=== PATIENT | female | born 1995 | race Caucasian/White ===

== ENCOUNTER 2016-12-27 11:30 | Emergency (ER) | payer OTHER ==
[~2016-12-27 11:30] MED LIST: IBUP80TA PO; PERCOCET PO; VITAPRTA PO
[2016-12-27 12:53] LABS: BASO % 0.4 % (0.0-1.0); EOS # 0.1 K/mm3 (0.0-0.50); EOS % 1.1 % (0.0-3.0); LARGE UNSTAINED CELL # 0.1 K/mm3 (0.0-0.4); LARGE UNSTAINED CELL % 1.4 % (0.0-4.0); LYMPH # 2.4 K/mm3 (1.5-6.5); LYMPH % 29.3 % (24.0-44.0); MEAN CORPUSCULAR HEMOGLOBIN 31.3 pg (27.0-33.0); MEAN CORPUSCULAR HGB CONC 33.1 g/dl (32.0-36.5); MEAN CORPUSCULAR VOLUME 94.6 fl (80.0-96.0); MONO # 0.5 K/mm3 (0.0-0.8); MONO % 5.9 % (0.0-5.0); NEUTROPHILS # 4.9 K/mm3 (1.8-7.7); NEUTROPHILS % 61.9 % (36.0-66.0); PLATELET COUNT, AUTOMATED 210 k/mm3 (150-450); RED CELL DISTRIBUTION WIDTH 12.2 % (11.5-14.5); WHITE BLOOD COUNT 7.9 K/mm3 (4.0-10.0)
[2016-12-27 13:10] LABS: ANION GAP 5 MEQ/L (8-16); BLOOD UREA NITROGEN 7 MG/DL (7-18); CALCIUM LEVEL 8.8 MG/DL (8.5-10.1); CARBON DIOXIDE LEVEL 29 MEQ/L (21-32); CHLORIDE LEVEL 106 MEQ/L (98-107); CREATININE FOR GFR 0.58 MG/DL (0.55-1.02); GLOMERULAR FILTRATION RATE > 60.0 (>60); GLUCOSE, FASTING 85 MG/DL (70-105); SODIUM LEVEL 140 MEQ/L (136-145)
[2016-12-27 13:36] LABS: CONTROL LINE UCG INT CTR LINE PRESENT
--- NOTE | 2016-12-27 14:26 | EDDOCDS ---
Physician Documentation [facility] Name: Aki Bruno Age: 21 yrs Sex: Female : 1995 Arrival Date: 12/27/2016 Time: 11:30 Bed TR8 Private MD: [facility] - Pediatrics Disposition: 12/27/16 13:52 Discharged to Home/Self Care. Impression: Strain of muscle and tendon of back wall of thorax, Upper abdominal pain, unspecified, Dyspareunia. - Condition is Stable. - Discharge Instructions: Abdominal Pain, Adult, Muscle Strain, Dyspareunia. - Prescriptions for Ibuprofen 600 mg Oral Tablet - take 1 tablet by ORAL route every 6 hours As needed take with food; 30 tablet. ZOFRAN ODT 4 mg Oral - dissolve 1 tablet by ORAL route every 8 hours As needed do not chew, do not swallow whole; 10 tablet. - Medication Reconciliation, Local Pharmacy Hours form. - Follow up: [facility] - Pediatrics; When: Call to arrange an appointment; Reason: Recheck today's complaints, Continuance of care. Follow up: Marlo Huang MD; When: Call to arrange an appointment; Reason: Continuance of care. Follow up: Emergency Department; When: As needed; Reason: Fever > 102F, Worsening of conditions. - Problem is new. - Symptoms have improved. Historical: - Allergies: no known allergies; - Home Meds: 1. Tylenol 1000mg Oral (Last dose: 12/27/2016 09:00) - PMHx: Anxiety; Depression; Borderline Personality Disorder; - PSHx: ; Exploratory lap; - Social history: Smoking status: Patient uses tobacco products, current every day smoker. No barriers to communication noted, The patient speaks fluent Greek, Speaks appropriately for age. - Family history: Not pertinent. - : The pt / caregiver states he / she is not on anticoagulants. Home medication list is obtained from the patient. - Exposure Risk Screening:: None identified. 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 Vital Signs: 11:31 BP 105 / 60; Pulse 64; Resp 18; Temp 98.9(O); Pulse Ox 100% on R/A; Weight 54.88 kg / ct3 120.99 lbs (M); Height 5 ft. 6 in. (167.64 cm) (R); Pain 7/10; 14:18 BP 102 / 62; Pulse 63; Resp 16; Temp 99.3; Pulse Ox 99% ; Pain 5/10; cjh 11:31 Body Mass Index 19.53 (54.88 kg, 167.64 cm) ct3 MDM: 11:49 UA Ordered. EDMS 12:23 Set up pelvic ordered. ar2 12:23 Undress patient appropriately for examination ordered. ar2 12:23 CBC with Diff Ordered. EDMS 12:23 MED Profile Ordered. EDMS 12:23 Wet Prep Ordered. EDMS 12:23 GC & Chlamydia Amplification Ordered. EDMS 12:23 Urine Culture Ordered. EDMS 12:26 UCG- In Lab Ordered. EDMS 12:37 -US Pelvic Non-Ob Complete Ordered. EDMS 12:37 DUPLEX SCAN LIMITED (DOPPLER)+US Ordered. EDMS 12:52 Transvaginal NON- US Ordered. EDMS 12:53 Financial registration complete. lg 12:59 [facility] Payment Agreement was scanned into [employer] and attached to record. lg 13:50 UA Reviewed. ar2 13:50 CBC with Diff Reviewed. ar2 13:50 MED Profile Reviewed. ar2 13:50 Wet Prep Reviewed. ar2 13:50 UCG- In Lab Reviewed. ar2 Signatures: Dispatcher [employer] EDMarian Estrada, RN RN srm Pau Zamora, Reg Reg lg Brian Hamlin PA-C PA-C ar2 Tosha Griffin RN RN [facility] The chart was reviewed and I authenticate all verbal orders and agree with the evaluation and treatment provided.Corrections: (The following items were deleted from the chart) 11:39 11:39 Home Meds: none; srm srm 12:24 12:23 UCG by Nursing ordered. ar2 ar3 Attachments: 12:59 [facility] Payment Agreement lg MTDD
--- NOTE | 2016-12-27 14:27 | EDDOCDS ---
Nurse's Notes [facility] Name: Aki Bruno Age: 21 yrs Sex: Female : 1995 Arrival Date: 12/27/2016 Time: 11:30 Bed TR8 Private MD: [facility] - Pediatrics Diagnosis: Strain of muscle and tendon of back wall of thorax;Upper abdominal pain, unspecified;Dyspareunia Presentation: 12/27 11:37 Presenting complaint: Patient states: left flank pain and stomach feels like she is srm being kicked by a horse. symptoms started a couple of days. while having intercourse this week had mid abd pain. no urinary symptoms- some frequency. Acute neurological deficits are not present. Mechanism of Injury: No Mechanism of Injury. Adult Sepsis Screening: The patient does not have new or worsening altered mentation. Patient's respiratory rate is less than 22. Systolic blood pressure is greater than 100. Patient has a qSOFA score of 0- Negative Sepsis Screen. Suicide/Homicide risk assessment- the patient denies having any suicidal and/or homicidal ideations and does not present with any other emotional, behavioral or mental health complaints. Status: Patient is not a x ray service technician or dependent. Transition of care: patient was not received from another setting of care. 11:37 Acuity: KAY Level 3 srm 11:37 Method Of Arrival: Walkin/Carried/Asstd srm Triage Assessment: 11:39 General: Appears in no apparent distress, Behavior is appropriate for age, cooperative. srm Pain: Pain currently is 4 out of 10 on a pain scale. At worst was 8 out of 10 on a pain scale. HIV screening NA for this visit Offered previously. Musculoskeletal: Reports left flank. 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 Tylenol 1000mg Oral (Last dose: 12/27/2016 09:00) - PMHx: Anxiety; Depression; Borderline Personality Disorder; - PSHx: ; Exploratory lap; - Social history: Smoking status: Patient uses tobacco products, current every day smoker. No barriers to communication noted, The patient speaks fluent [place]ine[place], Speaks appropriately for age. - Family history: Not pertinent. - : The pt / caregiver states he / she is not on anticoagulants. Home medication list is obtained from the patient. - Exposure Risk Screening:: None identified. Screenin:32 Infection Control. ct3 14:18 Screening information is obtained from the patient. Fall risk: No risks identified. [facility] Assistance ADL's: requires no assistance with activities of daily living. Abuse/DV Screen: The patient / caregiver reports he/she is: not in a situation that causes fear, pain or injury. Nutritional screening: No deficits noted. Advance Directives: There is no active DNR order. home support is adequate. Assessment: 14:18 General: Appears in no apparent distress, comfortable, Behavior is appropriate for age, [facility] cooperative. Pain: Location: back Pain currently is 5 out of 10 on a pain scale. Respiratory: Airway is patent Respiratory effort is even, unlabored, Respiratory pattern is symmetrical. Derm: Skin is pink, warm & dry. Vital Signs: 11:31 BP 105 / 60; Pulse 64; Resp 18; Temp 98.9(O); Pulse Ox 100% on R/A; Weight 54.88 kg ct3 (M); Height 5 ft. 6 in. (167.64 cm) (R); Pain 7/10; 14:18 BP 102 / 62; Pulse 63; Resp 16; Temp 99.3; Pulse Ox 99% ; Pain 5/10; cjh 11:31 Body Mass Index 19.53 (54.88 kg, 167.64 cm) ct3 Vitals: 11:31 Log In Time: December 27, 2016 at 11:28. ct3 ED Course: 11:31 Patient visited by Cecile Lynn PCA. ct3 11:31 [facility] is Private Physician. ct3 11:31 Patient moved to Waiting ct3 11:32 Patient moved to Pre RCE ct3 11:38 Triage Initiated srm 11:46 Patient moved to Triage 3 ar3 12:01 [facility] ar2 12:01 Angel Luis Magallanes MD is Attending Physician. ar2 12:01 Patient visited by Brian Hamlin PA-C. ar2 12:24 Urine Culture Sent. ar3 12:29 UCG- In Lab Sent. ar3 12:29 MED Profile Sent. ar3 12:29 CBC with Diff Sent. ar3 12:41 Patient moved to TR2 ar3 12:41 GC & Chlamydia Amplification Sent. ar3 12:41 Wet Prep Sent. ar3 12:43 Patient moved to Ultrasound am10 12:59 [facility] Payment Agreement was scanned into [employer] and attached to record. lg 13:00 Patient moved to TR2 am10 13:37 Lois Odell,RN is Primary Nurse. ar3 13:37 Patient moved to PR1 / 25 ar3 13:51 [facility] is Referral Physician. ar2 13:51 Marlo Huang MD is Referral Physician. ar2 14:09 Patient moved to TR8 [facility] 14:18 The patient / caregiver is instructed regarding the plan of care and ED course. [facility] 14:18 No IV's were initiated during this patient's visit. No procedures done that require [facility] assistance. Order Results: Lab Order: UA; SPEC'M 12/27/16 11:49 Test: APPEARANCE, URINE; Value: HAZY; Range: CLEAR; Status: F Test: COLOR, URINE; Value: YELLOW; Range: YELLOW; Status: F Test: PH,URINE; Value: 8.0; Range: 5.0-9.0; Units: UNITS; Status: F Test: SPECIFIC GRAVITY URINE AUTO; Value: 1.023; Range: 1.002-1.035; Status: F Test: PROTEIN, URINE AUTO; Value: NEGATIVE; Range: NEGATIVE; Units: mg/dL; Status: F Test: GLUCOSE, URINE (UA) AUTO; Value: NEGATIVE; Range: NEGATIVE; Units: mg/dL; Status: F Test: KETONE, URINE AUTO; Value: NEGATIVE; Range: NEGATIVE; Units: mg/dL; Status: F Test: UROBILINOGEN, URINE AUTO; Value: 0.2; Range: 0.0-2.0; Units: mg/dL; Status: F Test: BILIRUBIN, URINE AUTO; Value: NEGATIVE; Range: NEGATIVE; Status: F Test: NITRITE, URINE AUTO; Value: NEGATIVE; Range: NEGATIVE; Status: F Test: LEUKOCYTE ESTERASE, URINE AUTO; Value: NEGATIVE; Range: NEGATIVE; Status: F Test: BLOOD, URINE BLOOD; Value: NEGATIVE; Range: NEGATIVE; Status: F Test: WBC, URINE AUTO; Value: 1; Range: 0-3; Units: /HPF; Status: F Test: RBC, URINE AUTO; Value: 3; Range: 0-3; Units: /HPF; Status: F Test: BACTERIA, URINE AUTO; Value: 1+; Range: NEGATIVE; Abnormal: Above high normal; Status: F Test: SQUAMOUS EPITHELIAL CELL UR AU; Value: 2; Range: 0-6; Units: /HPF; Status: F Test: MUCUS, URINE; Value: SMALL; Range: NEGATIVE; Status: F Test: HYALINE CAST, URINE AUTO; Value: 0; Range: 0-1; Units: /LPF; Status: F Lab Order: CBC with Diff; SPEC'M 12/27/16 12:28 Test: WHITE BLOOD COUNT; Value: 7.9; Range: 4.0-10.0; Units: K/mm3; Status: F Test: RED BLOOD COUNT; Value: 4.77; Range: 4.00-5.40; Units: M/mm3; Status: F Test: HEMOGLOBIN; Value: 14.9; Range: 12.0-16.0; Units: g/dl; Status: F Test: HEMATOCRIT; Value: 45.1; Range: 36.0-47.0; Units: %; Status: F Test: MEAN CORPUSCULAR VOLUME; Value: 94.6; Range: 80.0-96.0; Units: fl; Status: F Test: MEAN CORPUSCULAR HEMOGLOBIN; Value: 31.3; Range: 27.0-33.0; Units: pg; Status: F Test: MEAN CORPUSCULAR HGB CONC; Value: 33.1; Range: 32.0-36.5; Units: g/dl; Status: F Test: RED CELL DISTRIBUTION WIDTH; Value: 12.2; Range: 11.5-14.5; Units: %; Status: F Test: PLATELET COUNT, AUTOMATED; Value: 210; Range: 150-450; Units: k/mm3; Status: F Test: NEUTROPHILS %; Value: 61.9; Range: 36.0-66.0; Units: %; Status: F Test: LYMPH %; Value: 29.3; Range: 24.0-44.0; Units: %; Status: F Test: MONO %; Value: 5.9; Range: 0.0-5.0; Abnormal: Above high normal; Units: %; Status: F Test: EOS %; Value: 1.1; Range: 0.0-3.0; Units: %; Status: F Test: BASO %; Value: 0.4; Range: 0.0-1.0; Units: %; Status: F Test: LARGE UNSTAINED CELL %; Value: 1.4; Range: 0.0-4.0; Units: %; Status: F Test: NEUTROPHILS #; Value: 4.9; Range: 1.8-7.7; Units: K/mm3; Status: F Test: LYMPH #; Value: 2.4; Range: 1.5-6.5; Units: K/mm3; Status: F Test: MONO #; Value: 0.5; Range: 0.0-0.8; Units: K/mm3; Status: F Test: EOS #; Value: 0.1; Range: 0.0-0.50; Units: K/mm3; Status: F Test: BASO #; Value: 0.0; Range: 0.0-0.2; Units: K/mm3; Status: F Test: LARGE UNSTAINED CELL #; Value: 0.1; Range: 0.0-0.4; Units: K/mm3; Status: F Lab Order: MED Profile; [facility] 12/27/16 12:28 Test: GLUCOSE, FASTING; Value: 85; Range: 70-105; Units: MG/DL; Status: F Test: BLOOD UREA NITROGEN; Value: 7; Range: 7-18; Units: MG/DL; Status: F Test: CREATININE FOR GFR; Value: 0.58; Range: 0.55-1.02; Units: MG/DL; Status: F Test: GLOMERULAR FILTRATION RATE; Value: > 60.0; Range: >60; Status: F Test: SODIUM LEVEL; Value: 140; Range: 136-145; Units: MEQ/L; Status: F Test: POTASSIUM SERUM; Value: 4.0; Range: 3.5-5.1; Units: MEQ/L; Status: F Test: CHLORIDE LEVEL; Value: 106; Range: 98-107; Units: MEQ/L; Status: F Test: CARBON DIOXIDE LEVEL; Value: 29; Range: 21-32; Units: MEQ/L; Status: F Test: ANION GAP; Value: 5; Range: 8-16; Abnormal: Below low normal; Units: MEQ/L; Status: F Test: CALCIUM LEVEL; Value: 8.8; Range: 8.5-10.1; Units: MG/DL; Status: F Test Note: ; Units are mL/min/1.73 m2 Chronic Kidney Disease Staging per NKF: Stage I & II GFR >=60 Normal to Mildly Decreased Stage III GFR 30-59 Moderately Decreased Stage IV GFR 15-29 Severely Decreased Stage V GFR <15 Very Little GFR Left ESRD GFR <15 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 ar2 14:18 Discharge Assessment: Patient awake, alert and oriented x 3. No cognitive and/or [facility] functional deficits noted. Patient verbalized understanding of disposition instructions. patient administered narcotics - no. The following High Risk Discharge criteria are identified: None. Discharged to home ambulatory. Condition: good Condition: stable Condition: improved. Discharge instructions given to patient. Ultrasound Study completed. Property :Personal belongings accompany Pt. 14:26 Patient left the ED. [facility] Signatures: Marian Schroeder RN RN srm Pau Zamora, Reg Reg Erin Castaneda am10 Brian Hamlin PA-C PA-C ar2 Sara Shaver, LAND COMMISSIONER LAND COMMISSIONER ar3 Cecile Lynn, LAND COMMISSIONER LAND COMMISSIONER ct3 Tosha Griffin RN RN [facility] Corrections: (The following items were deleted from the chart) 11:39 11:39 Home Meds: none; srm srm MTDD
--- NOTE | 2016-12-27 16:00 | REP ---
PELVIC ULTRASOUND: Real-time sonographic evaluation of the pelvis was performed utilizing transabdominal and endovaginal technique. The bladder measures 2.1 x 1.6 x 5.2 cm. The uterus measures 6.6 x 3.1 x 3.8 cm. Endometrial thickness is 3 mm. There is no endometrial fluid collection. Right ovary measures 3.1 x 2.1 x 2.4 cm and left ovary 2.7 x 1.8 x 2.3 cm. There is an involuting follicle in the right ovary 1.1 cm in diameter. There is no other events of adnexal mass or free fluid. Blood flow is seen in each ovary with duplex Doppler evaluation, RI of the right ovary is 0.47 and left ovary 0.53. IMPRESSION: There is an involuting follicle right ovary 1.1 cm in diameter. No ovarian torsion, otherwise negative ultrasound. Signed by Manuelito Enamorado MD 12/28/2016 12:09 P
--- NOTE | 2016-12-29 15:28 | EDDOCDS ---
Physician Documentation [facility] Name: Aki Bruno Age: 21 yrs Sex: Female : 1995 Arrival Date: 12/27/2016 Time: 11:30 Bed TR8 Private MD: [facility] - Pediatrics Disposition: 12/27/16 13:52 Discharged to Home/Self Care. Impression: Strain of muscle and tendon of back wall of thorax, Upper abdominal pain, unspecified, Dyspareunia. - Condition is Stable. - Discharge Instructions: Abdominal Pain, Adult, Muscle Strain, Dyspareunia. - Prescriptions for Ibuprofen 600 mg Oral Tablet - take 1 tablet by ORAL route every 6 hours As needed take with food; 30 tablet. ZOFRAN ODT 4 mg Oral - dissolve 1 tablet by ORAL route every 8 hours As needed do not chew, do not swallow whole; 10 tablet. - Medication Reconciliation, Local Pharmacy Hours form. - Follow up: [facility] - Pediatrics; When: Call to arrange an appointment; Reason: Recheck today's complaints, Continuance of care. Follow up: Marlo Huang MD; When: Call to arrange an appointment; Reason: Continuance of care. Follow up: Emergency Department; When: As needed; Reason: Fever > 102F, Worsening of conditions. - Problem is new. - Symptoms have improved. Historical: - Allergies: no known allergies; - Home Meds: 1. Tylenol 1000mg Oral (Last dose: 12/27/2016 09:00) - PMHx: Anxiety; Depression; Borderline Personality Disorder; - PSHx: ; Exploratory lap; - Social history: Smoking status: Patient uses tobacco products, current every day smoker. No barriers to communication noted, The patient speaks fluent Armenian, Speaks appropriately for age. - Family history: Not pertinent. - : The pt / caregiver states he / she is not on anticoagulants. Home medication list is obtained from the patient. - Exposure Risk Screening:: None identified. 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 6 in. (167.64 cm) (R); Pain 7/10; 14:18 BP 102 / 62; Pulse 63; Resp 16; Temp 99.3; Pulse Ox 99% ; Pain 5/10; cjh 11:31 Body Mass Index 19.53 (54.88 kg, 167.64 cm) ct3 MDM: 11:49 UA Ordered. EDMS 12:23 Set up pelvic ordered. ar2 12:23 Undress patient appropriately for examination ordered. ar2 12:23 CBC with Diff Ordered. EDMS 12:23 MED Profile Ordered. EDMS 12:23 Wet Prep Ordered. EDMS 12:23 GC & Chlamydia Amplification Ordered. EDMS 12:23 Urine Culture Ordered. EDMS 12:26 UCG- In Lab Ordered. EDMS 12:37 -US Pelvic Non-Ob Complete Ordered. EDMS 12:37 DUPLEX SCAN LIMITED (DOPPLER)+US Ordered. EDMS 12:52 Transvaginal NON- US Ordered. EDMS 12:53 Financial registration complete. lg 12:59 [facility] Payment Agreement was scanned into [employer] and attached to record. lg 13:50 UA Reviewed. ar2 13:50 CBC with Diff Reviewed. ar2 13:50 MED Profile Reviewed. ar2 13:50 Wet Prep Reviewed. ar2 13:50 UCG- In Lab Reviewed. ar2 12/28 10:15 T-Sheet-- Draft Copy was scanned into [employer] and attached to record. gb 10:16 Radiology Report was scanned into [employer] and attached to record. gb Signatures: Dispatcher [employer] EDCO Marian Schroeder, RN RN [facility] Rebecca Malone, Reg Reg gb Pau Zamora, Reg Reg lg Brian Hamlin, PA-C PA-C ar2 Tosha Griffin RN RN [facility] The chart was reviewed and I authenticate all verbal orders and agree with the evaluation and treatment provided.Corrections: (The following items were deleted from the chart) 12/27 11:39 11:39 Home Meds: none; srm srm 12:24 12:23 UCG by Nursing ordered. ar2 ar3 Attachments: 12:59 [facility] Payment Agreement lg 12/28 10:15 T-Sheet-- Draft Copy gb Chart Complete MTDD
--- NOTE | 2016-12-29 15:28 | EDDOCDS ---
Nurse's Notes [facility] Name: Aki Bruno Age: 21 yrs Sex: Female : 1995 Arrival Date: 12/27/2016 Time: 11:30 Bed TR8 Private MD: [facility] Diagnosis: Strain of muscle and tendon of back wall of thorax;Upper abdominal pain, unspecified;Dyspareunia Presentation: 12/27 11:37 Presenting complaint: Patient states: left flank pain and stomach feels like she is srm being kicked by a horse. symptoms started a couple of days. while having intercourse this week had mid abd pain. no urinary symptoms- some frequency. Acute neurological deficits are not present. Mechanism of Injury: No Mechanism of Injury. Adult Sepsis Screening: The patient does not have new or worsening altered mentation. Patient's respiratory rate is less than 22. Systolic blood pressure is greater than 100. Patient has a qSOFA score of 0- Negative Sepsis Screen. Suicide/Homicide risk assessment- the patient denies having any suicidal and/or homicidal ideations and does not present with any other emotional, behavioral or mental health complaints. 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 Transition of care: patient was not received from another setting of care. 11:37 Acuity: KAY Level 3 srm 11:37 Method Of Arrival: Walkin/Carried/Asstd srm Triage Assessment: 11:39 General: Appears in no apparent distress, Behavior is appropriate for age, cooperative. srm Pain: Pain currently is 4 out of 10 on a pain scale. At worst was 8 out of 10 on a pain scale. HIV screening NA for this visit Offered previously. Musculoskeletal: Reports left flank. [employer]: 11:39 LMP 11/29/2016 srm Historical: - Allergies: no known allergies; - Home Meds: 1. Tylenol 1000mg Oral (Last dose: 12/27/2016 09:00) - PMHx: Anxiety; Depression; Borderline Personality Disorder; - PSHx: ; Exploratory lap; - Social history: Smoking status: Patient uses tobacco products, current every day smoker. No barriers to communication noted, The patient speaks fluent Guatemalan, Speaks appropriately for age. - Family history: Not pertinent. - : The pt / caregiver states he / she is not on anticoagulants. Home medication list is obtained from the patient. - Exposure Risk Screening:: None identified. Screenin:32 Infection Control. ct3 14:18 Screening information is obtained from the patient. Fall risk: No risks identified. [facility] Assistance ADL's: requires no assistance with activities of daily living. Abuse/DV Screen: The patient / caregiver reports he/she is: not in a situation that causes fear, pain or injury. Nutritional screening: No deficits noted. Advance Directives: There is no active DNR order. home support is adequate. Assessment: 14:18 General: Appears in no apparent distress, comfortable, Behavior is appropriate for age, [facility] cooperative. Pain: Location: back Pain currently is 5 out of 10 on a pain scale. Respiratory: Airway is patent Respiratory effort is even, unlabored, Respiratory pattern is symmetrical. Derm: Skin is pink, warm & dry. Vital Signs: 11:31 BP 105 / 60; Pulse 64; Resp 18; Temp 98.9(O); Pulse Ox 100% on R/A; Weight 54.88 kg ct3 (M); Height 5 ft. 6 in. (167.64 cm) (R); Pain 7/10; 14:18 BP 102 / 62; Pulse 63; Resp 16; Temp 99.3; Pulse Ox 99% ; Pain 5/10; cjh 11:31 Body Mass Index 19.53 (54.88 kg, 167.64 cm) ct3 Vitals: 11:31 Log In Time: December 27, 2016 at 11:28. ct3 ED Course: 11:31 Patient visited by Cecile Lynn PCA. ct3 11:31 [facility] is Private Physician. ct3 11:31 Patient moved to Waiting ct3 11:32 Patient moved to Pre RCE ct3 11:38 Triage Initiated srm 11:46 Patient moved to Triage 3 ar3 12:01 [facility]. ar2 12:01 Angel Luis Magallanes MD is Attending Physician. ar2 12:01 Patient visited by Brian Hamlin PA-C. ar2 12:24 Urine Culture Sent. ar3 12:29 UCG- In Lab Sent. ar3 12:29 MED Profile Sent. ar3 12:29 CBC with Diff Sent. ar3 12:41 Patient moved to TR2 ar3 12:41 GC & Chlamydia Amplification Sent. ar3 12:41 Wet Prep Sent. ar3 12:43 Patient moved to Ultrasound am10 12:59 [facility] Payment Agreement was scanned into [employer] and attached to record. lg 13:00 Patient moved to TR2 am10 13:37 Lois Odell,RN is Primary Nurse. ar3 13:37 Patient moved to PR1 / 25 ar3 13:51 [facility] is Referral Physician. ar2 13:51 Marlo Huang MD is Referral Physician. ar2 14:09 Patient moved to TR8 [facility] 14:18 The patient / caregiver is instructed regarding the plan of care and ED course. [facility] 14:18 No IV's were initiated during this patient's visit. No procedures done that require [facility] assistance. 16:06 -US Pelvic Non-Ob Complete Returned. EDMS 12/28 10:15 T-Sheet-- Draft Copy was scanned into [employer] and attached to record. 10:16 Radiology Report was scanned into [employer] and attached to record. gb Order Results: Lab Order: UA; SPEC'M 12/27/16 11:49 Test: APPEARANCE, URINE; Value: HAZY; Range: CLEAR; Status: F Test: COLOR, URINE; Value: YELLOW; Range: YELLOW; Status: F Test: PH,URINE; Value: 8.0; Range: 5.0-9.0; Units: UNITS; Status: F Test: SPECIFIC GRAVITY URINE AUTO; Value: 1.023; Range: 1.002-1.035; Status: F Test: PROTEIN, URINE AUTO; Value: NEGATIVE; Range: NEGATIVE; Units: mg/dL; Status: F Test: GLUCOSE, URINE (UA) AUTO; Value: NEGATIVE; Range: NEGATIVE; Units: mg/dL; Status: F Test: KETONE, URINE AUTO; Value: NEGATIVE; Range: NEGATIVE; Units: mg/dL; Status: F Test: UROBILINOGEN, URINE AUTO; Value: 0.2; Range: 0.0-2.0; Units: mg/dL; Status: F Test: BILIRUBIN, URINE AUTO; Value: NEGATIVE; Range: NEGATIVE; Status: F Test: NITRITE, URINE AUTO; Value: NEGATIVE; Range: NEGATIVE; Status: F Test: LEUKOCYTE ESTERASE, URINE AUTO; Value: NEGATIVE; Range: NEGATIVE; Status: F Test: BLOOD, URINE BLOOD; Value: NEGATIVE; Range: NEGATIVE; Status: F Test: WBC, URINE AUTO; Value: 1; Range: 0-3; Units: /HPF; Status: F Test: RBC, URINE AUTO; Value: 3; Range: 0-3; Units: /HPF; Status: F Test: BACTERIA, URINE AUTO; Value: 1+; Range: NEGATIVE; Abnormal: Above high normal; Status: F Test: SQUAMOUS EPITHELIAL CELL UR AU; Value: 2; Range: 0-6; Units: /HPF; Status: F Test: MUCUS, URINE; Value: SMALL; Range: NEGATIVE; Status: F Test: HYALINE CAST, URINE AUTO; Value: 0; Range: 0-1; Units: /LPF; Status: F Lab Order: CBC with Diff; SPEC'M 12/27/16 12:28 Test: WHITE BLOOD COUNT; Value: 7.9; Range: 4.0-10.0; Units: K/mm3; Status: F Test: RED BLOOD COUNT; Value: 4.77; Range: 4.00-5.40; Units: M/mm3; Status: F Test: HEMOGLOBIN; Value: 14.9; Range: 12.0-16.0; Units: g/dl; Status: F Test: HEMATOCRIT; Value: 45.1; Range: 36.0-47.0; Units: %; Status: F Test: MEAN CORPUSCULAR VOLUME; Value: 94.6; Range: 80.0-96.0; Units: fl; Status: F Test: MEAN CORPUSCULAR HEMOGLOBIN; Value: 31.3; Range: 27.0-33.0; Units: pg; Status: F Test: MEAN CORPUSCULAR HGB CONC; Value: 33.1; Range: 32.0-36.5; Units: g/dl; Status: F Test: RED CELL DISTRIBUTION WIDTH; Value: 12.2; Range: 11.5-14.5; Units: %; Status: F Test: PLATELET COUNT, AUTOMATED; Value: 210; Range: 150-450; Units: k/mm3; Status: F Test: NEUTROPHILS %; Value: 61.9; Range: 36.0-66.0; Units: %; Status: F Test: LYMPH %; Value: 29.3; Range: 24.0-44.0; Units: %; Status: F Test: MONO %; Value: 5.9; Range: 0.0-5.0; Abnormal: Above high normal; Units: %; Status: F Test: EOS %; Value: 1.1; Range: 0.0-3.0; Units: %; Status: F Test: BASO %; Value: 0.4; Range: 0.0-1.0; Units: %; Status: F Test: LARGE UNSTAINED CELL %; Value: 1.4; Range: 0.0-4.0; Units: %; Status: F Test: NEUTROPHILS #; Value: 4.9; Range: 1.8-7.7; Units: K/mm3; Status: F Test: LYMPH #; Value: 2.4; Range: 1.5-6.5; Units: K/mm3; Status: F Test: MONO #; Value: 0.5; Range: 0.0-0.8; Units: K/mm3; Status: F Test: EOS #; Value: 0.1; Range: 0.0-0.50; Units: K/mm3; Status: F Test: BASO #; Value: 0.0; Range: 0.0-0.2; Units: K/mm3; Status: F Test: LARGE UNSTAINED CELL #; Value: 0.1; Range: 0.0-0.4; Units: K/mm3; Status: F Lab Order: [facility]; [facility]' 12/27/16 12:28 Test: GLUCOSE, FASTING; Value: 85; Range: 70-105; Units: MG/DL; Status: F Test: BLOOD UREA NITROGEN; Value: 7; Range: 7-18; Units: MG/DL; Status: F Test: CREATININE FOR GFR; Value: 0.58; Range: 0.55-1.02; Units: MG/DL; Status: F Test: GLOMERULAR FILTRATION RATE; Value: > 60.0; Range: >60; Status: F Test: SODIUM LEVEL; Value: 140; Range: 136-145; Units: MEQ/L; Status: F Test: POTASSIUM SERUM; Value: 4.0; Range: 3.5-5.1; Units: MEQ/L; Status: F Test: CHLORIDE LEVEL; Value: 106; Range: 98-107; Units: MEQ/L; Status: F Test: CARBON DIOXIDE LEVEL; Value: 29; Range: 21-32; Units: MEQ/L; Status: F Test: ANION GAP; Value: 5; Range: 8-16; Abnormal: Below low normal; Units: MEQ/L; Status: F Test: CALCIUM LEVEL; Value: 8.8; Range: 8.5-10.1; Units: MG/DL; Status: F Test Note: ; Units are mL/min/1.73 m2 Chronic Kidney Disease Staging per NKF: Stage I & II GFR >=60 Normal to Mildly Decreased Stage III GFR 30-59 Moderately Decreased Stage IV GFR 15-29 Severely Decreased Stage V GFR <15 Very Little GFR Left ESRD GFR <15 on OPERATIONAL METEOROLOGIST Lab Order: Wet Prep; SPEC'M 12/27/16 12:28 Test: WET PREP; Value: WET PREP RESULT; Status: F Test: WET PREP; Value: MANY EPITHELIAL CELLS PRESENT; Status: F Test: WET PREP; Value: MODERATE WBC; Status: F Test: WET PREP; Value: FEW RBC; Status: F Test: WET PREP; Value: MANY LONG RODS PRESENT; Status: F Lab Order: GC & Chlamydia Amplification; SPEC'M 12/27/16 12:28 Test: CHLAMYDIA DNA AMPLIFICATION; Value: NEGATIVE; Range: NEGATIVE; Status: F Test: GC DNA AMPLIFICATION; Value: NEGATIVE; Range: NEGATIVE; Status: F Lab Order: Urine Culture; SPEC'M 12/27/16 11:48 Test: URINE CULTURE; Value: <EXTERNAL COMMENT eCWMed> FULL REPORT IN LAB NOTES (eCW and Medent).; Status: F Test: URINE CULTURE; Value: URINE CULTURE RESULT NO GROWTH CLINICAL SIGNIFICANCE 1 ORGANISM; Status: F Lab Order: UCG- In Lab; SPEC'M 12/27/16 11:49 Test: URINE PREG TEST; Value: NEGATIVE; Range: NEGATIVE; Status: F Radiology Order: -US Pelvic Non-Ob Complete Test: -US Pelvic Non-Ob Complete REASON FOR EXAMINATION: right adenexal pain; PELVIC ULTRASOUND:; ; Real-time sonographic evaluation of the pelvis was performed utilizing; transabdominal and endovaginal technique.; ; The bladder measures 2.1 x 1.6 x 5.2 cm. The uterus measures 6.6 x 3.1 x 3.8 cm.; Endometrial thickness is 3 mm. There is no endometrial fluid collection. Right; ovary measures 3.1 x 2.1 x 2.4 cm and left ovary 2.7 x 1.8 x 2.3 cm. There is an; involuting follicle in the right ovary 1.1 cm in diameter. There is no other; events of adnexal mass or free fluid. Blood flow is seen in each ovary with; duplex Doppler evaluation, RI of the right ovary is 0.47 and left ovary 0.53.; ; IMPRESSION:; ; There is an involuting follicle right ovary 1.1 cm in diameter. No ovarian; torsion, otherwise negative ultrasound.; ; ; Signed by; Manuelito Enamorado MD 12/28/2016 12:09 P; Outcome: 12/27 13:52 Discharge ordered by Provider. ar2 14:18 Discharge Assessment: Patient awake, alert and oriented x 3. No cognitive and/or [facility] functional deficits noted. Patient verbalized understanding of disposition instructions. patient administered narcotics - no. The following High Risk Discharge criteria are identified: None. Discharged to home ambulatory. Condition: good Condition: stable Condition: improved. Discharge instructions given to patient. Ultrasound Study completed. Property :Personal belongings accompany Pt. 14:26 Patient left the ED. [facility] Signatures: Dispatcher [employer] EDMS Marian Schroeder, RN RN srm Rebecca Malone, Reg Reg gb Pau Zamora, Reg Reg lg Erin Vivas am10 Brian Hamlin, MICHELLE PA-C ar2 Sara Shaver, LIFE TRAINER LIFE TRAINER ar3 Cecile Lynn, LIFE TRAINER LIFE TRAINER ct3 Tosha Griffin RN RN [facility] Corrections: (The following items were deleted from the chart) 11:39 11:39 Home Meds: none; srm srm Chart Complete MTDD
--- NOTE | 2016-12-29 15:28 | EDDOCDS ---
Physician Documentation [facility] Name: Aki Bruno Age: 21 yrs Sex: Female : 1995 Arrival Date: 12/27/2016 Time: 11:30 Bed TR8 Private MD: [facility] - [facility] Disposition: 12/27/16 13:52 Discharged to Home/Self Care. Impression: Strain of muscle and tendon of back wall of thorax, Upper abdominal pain, unspecified, Dyspareunia. - Condition is Stable. - Discharge Instructions: Abdominal Pain, Adult, Muscle Strain, Dyspareunia. - Prescriptions for Ibuprofen 600 mg Oral Tablet - take 1 tablet by ORAL route every 6 hours As needed take with food; 30 tablet. ZOFRAN ODT 4 mg Oral - dissolve 1 tablet by ORAL route every 8 hours As needed do not chew, do not swallow whole; 10 tablet. - Medication Reconciliation, Local Pharmacy Hours form. - Follow up: [facility]; When: Call to arrange an appointment; Reason: Recheck today's complaints, Continuance of care. Follow up: Marlo Huang MD; When: Call to arrange an appointment; Reason: Continuance of care. Follow up: Emergency Department; When: As needed; Reason: Fever > 102F, Worsening of conditions. - Problem is new. - Symptoms have improved. Historical: - Allergies: no known allergies; - Home Meds: 1. Tylenol 1000mg Oral (Last dose: 12/27/2016 09:00) - PMHx: Anxiety; Depression; Borderline Personality Disorder; - PSHx: ; Exploratory lap; - Social history: Smoking status: Patient uses tobacco products, current every day smoker. No barriers to communication noted, The patient speaks fluent Bengali, Speaks appropriately for age. - Family history: Not pertinent. - : The pt / caregiver states he / she is not on anticoagulants. Home medication list is obtained from the patient. - Exposure Risk Screening:: None identified. HAND TUFTER: 12/27 11:39 LMP 11/29/2016 [facility] Vital Signs: 11:31 BP 105 / 60; Pulse 64; Resp 18; Temp 98.9(O); Pulse Ox 100% on R/A; Weight 54.88 kg / ct3 120.99 lbs (M); Height 5 ft. 6 in. (167.64 cm) (R); Pain 7/10; 14:18 BP 102 / 62; Pulse 63; Resp 16; Temp 99.3; Pulse Ox 99% ; Pain 5/10; cjh 11:31 Body Mass Index 19.53 (54.88 kg, 167.64 cm) ct3 MDM: 11:49 UA Ordered. EDMS 12:23 Set up pelvic ordered. ar2 12:23 Undress patient appropriately for examination ordered. ar2 12:23 CBC with Diff Ordered. EDMS 12:23 MED Profile Ordered. EDMS 12:23 Wet Prep Ordered. EDMS 12:23 GC & Chlamydia Amplification Ordered. EDMS 12:23 Urine Culture Ordered. EDMS 12:26 UCG- In Lab Ordered. EDMS 12:37 -US Pelvic Non-Ob Complete Ordered. EDMS 12:37 DUPLEX SCAN LIMITED (DOPPLER)+US Ordered. EDMS 12:52 Transvaginal NON- US Ordered. EDMS 12:53 Financial registration complete. lg 12:59 [facility] Payment Agreement was scanned into [employer] and attached to record. lg 13:50 UA Reviewed. ar2 13:50 CBC with Diff Reviewed. ar2 13:50 MED Profile Reviewed. ar2 13:50 Wet Prep Reviewed. ar2 13:50 UCG- In Lab Reviewed. ar2 12/28 10:15 T-Sheet-- Draft Copy was scanned into [employer] and attached to record. gb 10:16 Radiology Report was scanned into [employer] and attached to record. gb Signatures: Dispatcher [employer] EDUT Marian Schroeder, RN RN [facility] Rebecca Malone, Reg Reg gb Pau Zamora, Reg Reg lg Brian Hamlin, PA-C PA-C ar2 Tosha Griffin RN RN [facility] The chart was reviewed and I authenticate all verbal orders and agree with the evaluation and treatment provided.Corrections: (The following items were deleted from the chart) 12/27 11:39 11:39 Home Meds: none; srm srm 12:24 12:23 UCG by Nursing ordered. ar2 ar3 Attachments: 12:59 [facility] Payment Agreement lg 12/28 10:15 T-Sheet-- Draft Copy gb Chart Complete MTDD
== END 2016-12-27 14:26 | disposition home or self-care (01) ==
LOC: M ED 11:30
DX: S29.012A Strain of muscle and tendon of back wall of thorax, initial encounter (principal); X58.XXXA Exposure to other specified factors, initial encounter; Y92.89 Other specified places as the place of occurrence of the external cause; Y93.89 Activity, other specified; Y99.8 Other external cause status; F32.9 Major depressive disorder, single episode, unspecified; F41.9 Anxiety disorder, unspecified; F60.3 Borderline personality disorder; F17.200 Nicotine dependence, unspecified, uncomplicated

== ENCOUNTER → 2017-02-21 | Outpatient (CLI) | payer OTHER ==
[~2017-02-21] MED LIST changes: +GASTROGRAFIN SOLUTION 30ML (Q9963) As Ordered ONE; +ISOVUE-370 76% 100ML VIAL (Q9967) As Ordered ONE
--- NOTE | 2017-02-21 16:10 | REP ---
CT study of the abdomen and pelvis without and with IV contrast: With oral contrast: History: Left upper quadrant abdominal pain. Comparison study: 09/26/2013. CT contrast dose: 100 mL of Isovue-[address] findings: Preliminary digital roof promenade tile setter radiograph is noncontributory. The lung bases are clear. There is no evidence of pleural effusion or upper abdominal ascites. The liver and the spleen are normal in size homogeneous in texture on pre- and postcontrast images. No adrenal lesion is seen on either side. Pancreas and gallbladder are unremarkable in appearance. No retroperitoneal mass or adenopathy is seen. Normal caliber aorta is seen. The kidneys enhance symmetrically are morphologically intact. Small and large intestinal bowel loops are unremarkable in the upper abdomen. Pelvic CT images show a normal appendix low in the right lower quadrant. No uterine or ovarian mass lesion is seen. Enhancement is noted in fairly numerous parametrial pelvic venous structures as before. Urinary bladder is unremarkable. No abdominal wall defect is seen. Bone window settings show no bony destructive lesion. Impression: Somewhat prominent parametrial veins in the pelvis bilaterally unchanged from the comparison study. Question pelvic congestion. Normal appendix seen. Gallbladder and pancreas are unremarkable. No acute disease. Signed by Sigifredo Garcia MD 02/21/2017 04:20 P
== END ==
LOC: M RAD 10:37
PROVIDERS: ATTEND Specialist
DX: R10.9 Unspecified abdominal pain (principal)

== ENCOUNTER → 2017-03-01 | Outpatient (REF) | payer OTHER ==
[~2017-03-01] MED LIST changes: -GASTROGRAFIN SOLUTION 30ML (Q9963) As Ordered ONE; -ISOVUE-370 76% 100ML VIAL (Q9967) As Ordered ONE
== END ==
LOC: M LAB REF 13:21
PROVIDERS: ATTEND Specialist
DX: Z12.11 Encounter for screening for malignant neoplasm of colon (principal)

== ENCOUNTER → 2017-04-07 | Outpatient (REF) | payer OTHER, MEDICAID | LOC: M LAB REF 16:26 | PROVIDERS: ATTEND Physician Assistant | DX: J02.9 Acute pharyngitis, unspecified (principal) ==

== ENCOUNTER 2017-07-02 11:02 | Emergency (ER) | payer MEDICAID, OTHER ==
[~2017-07-02] VITALS: Ht 170.2 cm; Wt 53.0 kg
[2017-07-02] MEDS ORDERED: MEDR1VL IM (11:10)
[2017-07-02 11:53] LABS: CONTROL LINE UCG INT CTR LINE PRESENT
[2017-07-02] MEDS ORDERED: NAPR500T PO (12:51)
[2017-07-02 13:00] VITALS: BP 97/65
== END 2017-07-02 13:04 | disposition home or self-care (01) ==
LOC: M ED 11:02
DX: S39.011A Strain of muscle, fascia and tendon of abdomen, initial encounter (principal); X50.0XXA Overexertion from strenuous movement or load, initial encounter; Y92.89 Other specified places as the place of occurrence of the external cause; Y93.89 Activity, other specified; Y99.0 Civilian activity done for income or pay; F41.9 Anxiety disorder, unspecified; F32.9 Major depressive disorder, single episode, unspecified

== ENCOUNTER → 2017-10-27 | Outpatient (CLI) | payer OTHER ==
[~2017-10-27] MED LIST changes: +MEDR1VL IM; +NAPR500T PO
[2017-10-27 20:18] LABS: BASO # 0.1 10^3/uL (0.0-0.2); BASO % 0.6 % (0.0-1.0); EOS # 0.1 10^3/uL (0.0-0.50); EOS % 1.1 % (0.0-3.0); IMMATURE GRANULOCYTE % 0.6 % (0-0); LYMPH # 3.4 10^3/uL (1.5-6.5); LYMPH % 31.9 % (24.0-44.0); MEAN CORPUSCULAR HEMOGLOBIN 30.9 pg (27.0-33.0); MEAN CORPUSCULAR HGB CONC 33.3 g/dl (32.0-36.5); MEAN CORPUSCULAR VOLUME 92.8 fl (80.0-96.0); MONO # 0.6 10^3/uL (0.0-0.8); MONO % 5.5 % (0.0-5.0); NEUTROPHILS # 6.4 10^3/uL (1.8-7.7); NEUTROPHILS % 60.3 % (36.0-66.0); PLATELET COUNT, AUTOMATED 257 10^3/uL (150-450); RED CELL DISTRIBUTION WIDTH 12.4 % (11.5-14.5); WHITE BLOOD COUNT 10.7 10^3/uL (4.0-10.0)
== END ==
LOC: M WUC 15:49
PROVIDERS: ATTEND Physician Assistant
DX: B00.9 Herpesviral infection, unspecified (principal)

== ENCOUNTER 2018-01-27 16:44 | Inpatient (IN) | payer MEDICAID, OTHER ==
[2018-01-27 17:48] LABS: HEMATOCRIT 44.6 % (36.0-47.0); HEMOGLOBIN 15.1 g/dl (12.0-16.0); MEAN CORPUSCULAR HEMOGLOBIN 31.3 pg (27.0-33.0); MEAN CORPUSCULAR HGB CONC 33.9 g/dl (32.0-36.5); MEAN CORPUSCULAR VOLUME 92.5 fl (80.0-96.0); PLATELET COUNT, AUTOMATED 255 10^3/uL (150-450); RED BLOOD COUNT 4.82 10^6/uL (4.00-5.40); RED CELL DISTRIBUTION WIDTH 11.9 % (11.5-14.5); WHITE BLOOD COUNT 9.1 10^3/uL (4.0-10.0)
[2018-01-27 18:13] LABS: AMPHETAMINES LEVEL URINE NEGATIVE (NEGATIVE); BARBITURATES URINE NEGATIVE (NEGATIVE); BENZODIAZEPINES URINE NEGATIVE (NEGATIVE); CANNABINOIDS URINE POSITIVE (NEGATIVE); COCAINE METABOLITE URINE NEGATIVE (NEGATIVE); METHADONE URINE NEGATIVE (NEGATIVE); OPIATES URINE NEGATIVE (NEGATIVE); PHENCYCLIDINE URINE NEGATIVE (NEGATIVE)
[2018-01-27 18:24] LABS: ALBUMIN 4.6 GM/DL (3.2-5.2); ALBUMIN/GLOBULIN RATIO 1.39 (1.00-1.93); ALKALINE PHOSPHATASE 97 U/L (45-117); ALT/SGPT 20 U/L (12-78); ANION GAP 8 MEQ/L (8-16); AST/SGOT 14 U/L (7-37); BILIRUBIN,DIRECT 0.1 MG/DL (0.0-0.2); BILIRUBIN,TOTAL 0.4 MG/DL (0.2-1.0); BLOOD UREA NITROGEN 11 MG/DL (7-18); CARBON DIOXIDE LEVEL 29 MEQ/L (21-32); CHLORIDE LEVEL 105 MEQ/L (98-107); CREATININE FOR GFR 0.67 MG/DL (0.55-1.30); ETHYL ALCOHOL (ETHANOL) < 0.003 % (0.000-0.010); GLOMERULAR FILTRATION RATE > 60.0 (>60); GLUCOSE, FASTING 62 MG/DL (70-100); POTASSIUM SERUM 3.7 MEQ/L (3.5-5.1); SALICYLATE LEVEL 3.7 MG/DL (5.0-30.0); SODIUM LEVEL 142 MEQ/L (136-145); THYROID STIMULATING HORMONE 0.301 uIU/ML (0.358-3.740); TOTAL PROTEIN 7.9 GM/DL (6.4-8.2)
[2018-01-27 18:25] LABS: ACETAMINOPHEN LEVEL < 2.0 UG/ML (10.0-30.0)
[2018-01-27] MEDS ORDERED: MAALOX 30 ML SUSP *UDC PO (19:45)
[2018-01-27] MEDS ORDERED: MOM 30ML SUSPENSION UDC PO (19:45)
[2018-01-27] MEDS: OXcarbazepine 150 MG TAB PO (23:45)
[2018-01-27] MEDS: QUEtiapine FUMARATE 50 MG TAB PO (23:45)
[2018-01-28] MEDS: QUEtiapine FUMARATE 50 MG TAB PO ×3 (08:58→22:14)
[2018-01-28] MEDS: OXcarbazepine 150 MG TAB PO ×2 (08:58→22:14)
[2018-01-28] MEDS: NICOTINE 21MG/24HR 1 EA TRANSDERMAL TD (08:58)
[2018-01-28] MEDS: GABAPENTIN 100 MG CAP PO ×2 (12:51→22:14)
[2018-01-28] MEDS: ACETAMINOPHEN TAB 650MG DOSE (2X325MG) PO (22:15)
[2018-01-29] MEDS: QUEtiapine FUMARATE 50 MG TAB PO (08:24)
[2018-01-29] MEDS: GABAPENTIN 100 MG CAP PO ×2 (08:24→20:28)
[2018-01-29] MEDS: OXcarbazepine 150 MG TAB PO ×2 (08:24→20:28)
[2018-01-29] MEDS: NICOTINE 21MG/24HR 1 EA TRANSDERMAL TD (08:24)
[2018-01-29 08:57] LABS: FREE T4 1.06 NG/DL (0.76-1.46)
[2018-01-29] MEDS: ACETAMINOPHEN TAB 650MG DOSE (2X325MG) PO ×2 (11:28→20:29)
[2018-01-29] MEDS: FLUoxetine 10 MG CAP PO (13:33)
[2018-01-29] MEDS: clonazePAM 0.5 MG TAB PO (20:28)
[2018-01-30] MEDS: GABAPENTIN 100 MG CAP PO ×2 (08:07→20:12)
[2018-01-30] MEDS: OXcarbazepine 150 MG TAB PO ×2 (08:07→20:12)
[2018-01-30] MEDS: ACETAMINOPHEN TAB 650MG DOSE (2X325MG) PO ×2 (08:07→20:12)
[2018-01-30] MEDS: clonazePAM 0.5 MG TAB PO (08:07)
[2018-01-30] MEDS: FLUoxetine 10 MG CAP PO (08:07)
[2018-01-30] MEDS: NICOTINE 21MG/24HR 1 EA TRANSDERMAL TD (08:08)
[2018-01-30] MEDS ORDERED: clonazePAM 0.5 MG TAB PO (11:45)
[2018-01-30] MEDS: traZODone 50 MG TAB PO (21:35)
[2018-01-31] MEDS: NICOTINE 21MG/24HR 1 EA TRANSDERMAL TD (08:10)
[2018-01-31] MEDS: OXcarbazepine 150 MG TAB PO (08:12)
[2018-01-31] MEDS: FLUoxetine 10 MG CAP PO (08:12)
[2018-01-31] MEDS: GABAPENTIN 100 MG CAP PO (08:12)
[2018-01-31] MEDS: ACETAMINOPHEN TAB 650MG DOSE (2X325MG) PO (08:12)
== END 2018-01-31 11:15 | disposition home or self-care (01) | DRG 881 ==
LOC: M ED 16:44 → M ED INP 19:42 → M PSY 22:00
DX: F32.9 Major depressive disorder, single episode, unspecified (principal); F60.3 Borderline personality disorder; F41.1 Generalized anxiety disorder; Z81.8 Family history of other mental and behavioral disorders; Z81.1 Family history of alcohol abuse and dependence; Z79.899 Other long term (current) drug therapy; Z62.810 Personal history of physical and sexual abuse in childhood; F17.210 Nicotine dependence, cigarettes, uncomplicated; Z86.14 Personal history of Methicillin resistant Staphylococcus aureus infection

== ENCOUNTER 2019-03-20 09:27 | Emergency (ER) | payer MEDICAID, OTHER ==
[~2019-03-20 09:27] MED LIST changes: +GABA-1171 PO; +KLON0.5T PO; +NAPR-837 PO; -NAPR500T PO; +OXCA150T21 PO; +PROZ10CA7 PO; +TRAZO50TA PO; +TRIL150T PO; +TYLE325T5 PO
[2019-03-20] MEDS ORDERED: GI COCKTAIL 50ML BTL(HYOSCYAMINE/MAALOX/LIDOCAINE VISCOUS)(1:3:1) PO ONE (10:15)
[2019-03-20 10:48] LABS: BASO # 0.1 10^3/uL (0.0-0.2); BASO % 0.7 % (0.0-1.0); EOS # 0.2 10^3/uL (0.0-0.50); EOS % 1.8 % (0.0-3.0); HEMATOCRIT 45.1 % (36.0-47.0); HEMOGLOBIN 14.6 g/dl (12.0-15.5); LYMPH # 3.6 10^3/uL (1.5-6.5); LYMPH % 43.9 % (24.0-44.0); MEAN CORPUSCULAR HEMOGLOBIN 30.5 pg (27.0-33.0); MEAN CORPUSCULAR HGB CONC 32.4 g/dl (32.0-36.5); MEAN CORPUSCULAR VOLUME 94.2 fl (80.0-96.0); MONO # 0.4 10^3/uL (0.0-0.8); MONO % 4.4 % (0.0-5.0); NEUTROPHILS % 49.1 % (36.0-66.0); PLATELET COUNT, AUTOMATED 282 10^3/uL (150-450); RED BLOOD COUNT 4.79 10^6/uL (4.00-5.40); WHITE BLOOD COUNT 8.2 10^3/uL (4.0-10.0)
[2019-03-20 11:05] LABS: INR 0.99; PROTHROMBIN TIME 13.2 SECONDS (12.1-14.4)
[2019-03-20 11:19] LABS: ALBUMIN 4.1 GM/DL (3.2-5.2); ALT/SGPT 20 U/L (12-78); BILIRUBIN,DIRECT < 0.1 MG/DL (0.0-0.2); BILIRUBIN,TOTAL 0.2 MG/DL (0.2-1.0); LIPASE 145 U/L (73-393); TOTAL PROTEIN 7.2 GM/DL (6.4-8.2)
[2019-03-20 11:22] LABS: HCG, SERUM QUALITATIVE NEGATIVE (NEGATIVE)
--- NOTE | 2019-03-20 11:47 | REP ---
PELVIC ULTRASOUND: Real-time sonographic evaluation of the pelvis performed utilizing transabdominal and endovaginal technique. Bladder measures 4.4 x 3.2 x 7.1 cm. Uterus measures 7.2 x 2.4 x 4.0 cm. Endometrial thickness is 2 mm with no endometrial fluid collection. Right ovary measures 2.9 x 1.8 x 2.7 cm and left ovary 2.8 x 1.8 x 2.2 cm. There is a dominant follicle in the right ovary 1.6 x 1.0 x 1.2 cm. There is no other evidence of adnexal mass or free fluid. There is no torsion of either ovary, RI right ovary 0.43 and left ovary 0.74. IMPRESSION: Dominant follicle right ovary 1.6 cm in diameter. No other evidence of mass or free fluid. No torsion. Electronically Signed by Manuelito Enamorado MD 03/20/2019 03:39 P
--- NOTE | 2019-03-20 12:54 | REP ---
ABDOMINAL SERIES: Supine and erect view of the abdomen demonstrate no evidence of free intraperitoneal and no evidence of small bowel obstruction. No abnormal calcifications are seen. The visualized osseous structures appear unremarkable. An accompanying view of the chest demonstrates no acute infiltrate. Heart is normal in size and mediastinal silhouette is unremarkable. IMPRESSION: Negative abdominal series. Electronically Signed by Manuelito Enamorado MD 03/20/2019 04:07 P
[2019-03-20] MEDS ORDERED: NAPR-837 PO (13:05)
[2019-03-20 13:06] VITALS: BP 101/61
== END 2019-03-20 13:16 | disposition home or self-care (01) ==
LOC: M ED 09:27
DX: N93.8 Other specified abnormal uterine and vaginal bleeding (principal); Z79.899 Other long term (current) drug therapy; F17.210 Nicotine dependence, cigarettes, uncomplicated

== ENCOUNTER 2019-04-01 08:27 | Emergency (ER) | payer OTHER ==
[~2019-04-01] VITALS: Ht 162.6 cm; Wt 54.5 kg
[2019-04-01] MEDS ORDERED: DIFL150T PO (09:51)
[2019-04-01 10:01] VITALS: BP 103/66
[2019-04-01 11:08] LABS: CHLAMYDIA DNA AMPLIFICATION NEGATIVE (NEGATIVE); GC DNA AMPLIFICATION NEGATIVE (NEGATIVE)
== END 2019-04-01 10:02 | disposition home or self-care (01) ==
LOC: M ED 08:27
DX: N89.8 Other specified noninflammatory disorders of vagina (principal); B37.3 Candidiasis of vulva and vagina; N83.299 Other ovarian cyst, unspecified side; R51 Headache; F41.9 Anxiety disorder, unspecified; F43.10 Post-traumatic stress disorder, unspecified; F31.9 Bipolar disorder, unspecified

== ENCOUNTER 2019-04-13 07:21 | Emergency (ER) | payer OTHER ==
[~2019-04-13] VITALS: Ht 162.6 cm; Wt 54.6 kg
[2019-04-13 07:21] VITALS: BP 144/72
[~2019-04-13 07:21] MED LIST changes: +DIFL150T PO; +TRAZ1TAB10 PO; -TRAZO50TA PO
[2019-04-13] MEDS ORDERED: IBUPROFEN 600 MG TAB PO ONE (07:45)
[2019-04-13] MEDS ORDERED: NAPR-837 PO (07:46)
== END 2019-04-13 07:58 | disposition home or self-care (01) ==
LOC: M ED 07:21
DX: N64.4 Mastodynia (principal)

== ENCOUNTER 2019-06-19 10:01 | Emergency (ER) | payer OTHER ==
[~2019-06-19] VITALS: Ht 162.6 cm; Wt 55.0 kg
[2019-06-19] MEDS ORDERED: ACETAMINOPHEN TAB 650MG DOSE (2X325MG) PO ONE (10:15)
[2019-06-19] MEDS ORDERED: MUCI600T31 PO (10:42)
[2019-06-19] MEDS ORDERED: VENTAER INH (10:42)
[2019-06-19] MEDS ORDERED: BENZ200C70 PO (10:42)
[2019-06-19 10:50] VITALS: BP 114/66
== END 2019-06-19 11:02 | disposition home or self-care (01) ==
LOC: M ED 10:01
DX: J06.9 Acute upper respiratory infection, unspecified (principal); F17.200 Nicotine dependence, unspecified, uncomplicated

== ENCOUNTER 2019-06-28 23:49 | Emergency (ER) | payer OTHER ==
[~2019-06-28] VITALS: Ht 162.6 cm; Wt 54.5 kg
[~2019-06-28 23:49] MED LIST changes: +BENZ200C70 PO; +MUCI600T31 PO; +VENTAER INH
[2019-06-29 03:04] VITALS: BP 109/62
[2019-06-29] MEDS ORDERED: ACETAMINOPHEN TAB 650MG DOSE (2X325MG) PO ONE (04:00)
[2019-06-29] MEDS ORDERED: AZIT-12 PO (04:35)
[2019-06-29] MEDS ORDERED: AZITHROMYCIN 250 MG TAB PO ONE (04:45)
--- NOTE | 2019-06-30 09:37 | REP ---
PA AND LATERAL CHEST: 06/29/2019. Comparison: PA chest 03/20/2019, two-view 10/26/2016. Clinical history: Cough. Findings: Fairly dense consolidative pneumonia in the right lower lobe particularly anterior segment but also superiorly. It abuts the major fissure on its posterior margin. Small effusion is noted. Remainder of the right lung and all the left lung were clear. Heart, mediastinal and hilar contours normal. Aorta and airway intact. Impression: 1. Right lower lobe fairly dense consolidative pneumonia. Small effusion. Electronically Signed by Louis Gupta MD 06/30/2019 08:17 P
== END 2019-06-29 04:54 | disposition home or self-care (01) ==
LOC: M ED 23:49
DX: J15.8 Pneumonia due to other specified bacteria (principal); F17.210 Nicotine dependence, cigarettes, uncomplicated

== ENCOUNTER 2020-04-08 10:39 | Emergency (ER) | payer BC, OTHER ==
[~2020-04-08] VITALS: Ht 162.6 cm; Wt 51.4 kg
[~2020-04-08 10:39] MED LIST changes: +AZIT-12 PO
[2020-04-08 11:43] LABS: BASO # 0.1 10^3/uL (0.0-0.2); BASO % 0.6 % (0.0-1.0); EOS # 0.1 10^3/uL (0.0-0.5); EOS % 0.9 % (0.0-3.0); HEMATOCRIT 43.3 % (36.0-47.0); HEMOGLOBIN 14.7 g/dl (12.0-15.5); LYMPH # 3.5 10^3/uL (1.5-5.0); LYMPH % 32.5 % (24.0-44.0); MEAN CORPUSCULAR HEMOGLOBIN 31.6 pg (27.0-33.0); MEAN CORPUSCULAR HGB CONC 33.9 g/dl (32.0-36.5); MEAN CORPUSCULAR VOLUME 93.1 fl (80.0-96.0); MONO # 0.5 10^3/uL (0.0-0.8); MONO % 4.6 % (0.0-5.0); NEUTROPHILS # 6.7 10^3/uL (1.5-8.5); NEUTROPHILS % 61.1 % (36.0-66.0); PLATELET COUNT, AUTOMATED 247 10^3/uL (150-450); RED BLOOD COUNT 4.65 10^6/uL (4.00-5.40); WHITE BLOOD COUNT 10.9 10^3/uL (4.0-10.0)
[2020-04-08 12:45] VITALS: BP 108/69
[2020-04-08 14:17] LABS: CHLAMYDIA DNA AMPLIFICATION NEGATIVE (NEGATIVE); GC DNA AMPLIFICATION NEGATIVE (NEGATIVE)
== END 2020-04-08 12:51 | disposition home or self-care (01) ==
LOC: M ED 10:39
DX: N94.10 Unspecified dyspareunia (principal)

== ENCOUNTER → 2020-08-26 | Outpatient (CLI) | payer BC | LOC: M LABSMTC 14:02 | PROVIDERS: ATTEND Family Medicine | DX: Z20.828 Contact with and (suspected) exposure to other viral communicable diseases (principal) | CPT/HCPCS: C9803; U0003 ==

== ENCOUNTER → 2020-12-09 | Outpatient (CLI) | payer BC, MEDICAID | LOC: M OUTALCOH 08:18 | PROVIDERS: ATTEND Psychiatry & Neurology Psychiatry | DX: F11.20 Opioid dependence, uncomplicated (principal) ==

== ENCOUNTER → 2020-12-11 | Outpatient (CLI) | payer BC ==
[2020-12-11 10:21] LABS: AMPHETAMINES URINE REFLEX NEGATIVE (NEGATIVE); BARBITURATES URINE REFLEX NEGATIVE (NEGATIVE); BENZODIAZEPINES URINE REFLEX NEGATIVE (NEGATIVE); COCAINE METABOLITE URINE REFLE NEGATIVE (NEGATIVE); METHADONE URINE REFLEX NEGATIVE (NEGATIVE); OPIATES URINE REFLEX NEGATIVE (NEGATIVE); PHENCYCLIDINE URINE REFLEX NEGATIVE (NEGATIVE)
[2020-12-11 10:29] LABS: CANNABINOIDS URINE REFLEX PENDING CONFIRMATION (NEGATIVE)
[2020-12-13 13:22] LABS: Cannabinoid Positive (.); GC Carboxy THC 466 ng/mL (Cutoff=10)
== END ==
LOC: M LAB 08:12
PROVIDERS: ATTEND Student in an Organized Health Care Education/Training Program
DX: F60.3 Borderline personality disorder (principal); F90.9 Attention-deficit hyperactivity disorder, unspecified type; F41.9 Anxiety disorder, unspecified; Z62.810 Personal history of physical and sexual abuse in childhood; Z63.0 Problems in relationship with spouse or partner
CPT/HCPCS: 36415; 80307; 82977; G0480

== ENCOUNTER 2021-01-08 11:10 | Outpatient (RCR) | payer BC, MEDICAID | END 2021-01-10 | LOC: M OUTALCOH 11:10 | PROVIDERS: ATTEND Psychiatry & Neurology Psychiatry | DX: F11.20 Opioid dependence, uncomplicated (principal); F12.20 Cannabis dependence, uncomplicated; F16.10 Hallucinogen abuse, uncomplicated; F17.200 Nicotine dependence, unspecified, uncomplicated ==

== ENCOUNTER 2021-02-05 13:14 | Outpatient (RCR) | payer BC ==
[2021-02-09] MEDS ORDERED: ARIP1TAB4 (01:22)
[2021-02-09] MEDS ORDERED: VENL37.598 (01:22)
[2021-02-09] MEDS ORDERED: BUPREN/NALOX (01:22)
[2021-02-09] MEDS ORDERED: OXCA150T21 (01:22)
== END 2021-02-10 ==
LOC: M OUTALCOH 13:14
PROVIDERS: ATTEND Psychiatry & Neurology Psychiatry
DX: F11.20 Opioid dependence, uncomplicated (principal); F12.20 Cannabis dependence, uncomplicated; F16.10 Hallucinogen abuse, uncomplicated; F17.200 Nicotine dependence, unspecified, uncomplicated

== ENCOUNTER 2021-02-09 01:07 | Emergency (ER) | payer BC ==
[~2021-02-09] VITALS: Ht 167.6 cm; Wt 50.1 kg
[2021-02-09] MEDS ORDERED: OXCA150T21 (01:22)
[2021-02-09] MEDS ORDERED: VENL37.598 (01:22)
[2021-02-09] MEDS ORDERED: BUPREN/NALOX (01:22)
[2021-02-09] MEDS ORDERED: ARIP1TAB4 (01:22)
[2021-02-09] MEDS ORDERED: LORazepam 2 MG TAB PO STA (01:31)
[2021-02-09 02:27] LABS: HEMATOCRIT 44.2 % (36.0-47.0); HEMOGLOBIN 14.5 g/dl (12.0-15.5); MEAN CORPUSCULAR HEMOGLOBIN 30.8 pg (27.0-33.0); MEAN CORPUSCULAR HGB CONC 32.8 g/dl (32.0-36.5); MEAN CORPUSCULAR VOLUME 93.8 fl (80.0-96.0); PLATELET COUNT, AUTOMATED 267 10^3/uL (150-450); RED BLOOD COUNT 4.71 10^6/uL (4.00-5.40)
[2021-02-09 02:49] LABS: ALBUMIN 3.6 GM/DL (3.2-5.2); ALT/SGPT 25 U/L (12-78); BILIRUBIN,TOTAL 0.2 MG/DL (0.2-1.0); BLOOD UREA NITROGEN 12 MG/DL (7-18); CALCIUM LEVEL 8.6 MG/DL (8.5-10.1); CARBON DIOXIDE LEVEL 28 MEQ/L (21-32); CHLORIDE LEVEL 106 MEQ/L (98-107); CREATININE FOR GFR 0.94 MG/DL (0.55-1.30); GLOMERULAR FILTRATION RATE > 60.0 (>60); GLUCOSE, FASTING 82 MG/DL (70-100); SODIUM LEVEL 138 MEQ/L (136-145)
--- NOTE | 2021-02-09 03:39 | REPVR ---
PROCEDURE INFORMATION: Exam: XR Chest Exam date and time: 02/09/2021 2:51 AM Age: 25 years old Clinical indication: Chest pain; Type not specified TECHNIQUE: Imaging protocol: XR of the chest Views: 1 view. COMPARISON: CR Chest, 2 view PA, Lat 06/29/2019 4:09 AM FINDINGS: Lungs: Pulmonary hyperinflation, not unusual for age. Resolution of right base infiltrate since the prior study. Pleural spaces: Resolution of right pleural effusion. Heart/Mediastinum: Unremarkable. No cardiomegaly. Bones/joints: Unremarkable. IMPRESSION: Negative chest with resolution of right lower lobe infiltrate and right pleural effusion since 06/29/2019. Electronically signed by: Taz Driscoll On 02/09/2021 03:39:10 AM
[2021-02-09 04:22] VITALS: BP 122/79
--- NOTE | 2021-02-09 05:14 | ECGEPIP ---
[facility] - ED Test Date: 2021-02-09 Pat Name: GEORGE FRANCISCO Department: Room: - Gender: Female Echo Tech: lina : 1995 Requested By: Moy Perales Order Number: [id number] Reading MD: Angel Luis Magallanes Measurements Intervals [place] Rate: 62 P: 65 NJ: 124 QRS: 93 QRSD: 92 T: 66 QT: 458 QTc: 464 Interpretive Statements Normal sinus rhythm with sinus arrhythmia RIGHT AXIS DEVIATION POOR R WAVE PROGRESSION NO PRIORS FOR COMPARISON Electronically Signed on 02-09-2021 5:13:43 EDT by Angel Luis Magallanes
== END 2021-02-09 04:45 | disposition home or self-care (01) ==
LOC: M ED 01:07
DX: F43.0 Acute stress reaction (principal); F41.9 Anxiety disorder, unspecified; F32.9 Major depressive disorder, single episode, unspecified

== ENCOUNTER → 2021-03-12 | Outpatient (RCR) | payer BC ==
[~2021-03-12] MED LIST changes: +ARIP1TAB4; +BUPREN/NALOX; +OXCA150T21; +VENL37.598
== END ==
LOC: M OUTALCOH 02-19 10:00
PROVIDERS: ATTEND Psychiatry & Neurology Psychiatry
DX: F11.20 Opioid dependence, uncomplicated (principal); F12.20 Cannabis dependence, uncomplicated; F16.10 Hallucinogen abuse, uncomplicated; F17.200 Nicotine dependence, unspecified, uncomplicated

== ENCOUNTER 2021-04-08 09:00 | Outpatient (RCR) | payer BC, MEDICAID | END 2021-04-12 | LOC: M OUTALCOH 09:00 | PROVIDERS: ATTEND Psychiatry & Neurology Psychiatry | DX: F11.20 Opioid dependence, uncomplicated (principal); F12.20 Cannabis dependence, uncomplicated; F16.10 Hallucinogen abuse, uncomplicated; F17.200 Nicotine dependence, unspecified, uncomplicated ==

== ENCOUNTER 2021-05-06 09:00 | Outpatient (RCR) | payer BC, MEDICAID | END 2021-05-12 | LOC: M OUTALCOH 09:00 | PROVIDERS: ATTEND Psychiatry & Neurology Psychiatry | DX: F11.20 Opioid dependence, uncomplicated (principal); F12.20 Cannabis dependence, uncomplicated; F16.10 Hallucinogen abuse, uncomplicated; F17.200 Nicotine dependence, unspecified, uncomplicated ==

== ENCOUNTER 2021-05-31 14:00 | Outpatient (RCR) | payer BC | END 2021-06-12 | LOC: M OUTALCOH 14:00 | PROVIDERS: ATTEND Psychiatry & Neurology Psychiatry | DX: F11.20 Opioid dependence, uncomplicated (principal); F12.20 Cannabis dependence, uncomplicated; F16.10 Hallucinogen abuse, uncomplicated; F17.200 Nicotine dependence, unspecified, uncomplicated ==

== ENCOUNTER → 2021-07-13 | Outpatient (RCR) | payer BC | LOC: M OUTALCOH 06-18 14:59 | PROVIDERS: ATTEND Psychiatry & Neurology Psychiatry | DX: F11.20 Opioid dependence, uncomplicated (principal); F12.20 Cannabis dependence, uncomplicated; F16.10 Hallucinogen abuse, uncomplicated; F17.200 Nicotine dependence, unspecified, uncomplicated ==

== ENCOUNTER → 2021-08-06 | Outpatient (CLI) | payer BC ==
[2021-08-06 10:36] LABS: BASO # 0.1 10^3/uL (0.0-0.2); BASO % 0.5 % (0.0-1.0); EOS # 0.1 10^3/uL (0.0-0.5); EOS % 0.5 % (0.0-3.0); LYMPH # 2.7 10^3/uL (1.5-5.0); LYMPH % 21.1 % (24.0-44.0); MEAN CORPUSCULAR HEMOGLOBIN 30.4 pg (27.0-33.0); MEAN CORPUSCULAR HGB CONC 34.1 g/dl (32.0-36.5); MEAN CORPUSCULAR VOLUME 89.2 fl (80.0-96.0); MONO # 0.6 10^3/uL (0.0-0.8); MONO % 4.4 % (2.0-8.0); NEUTROPHILS # 9.4 10^3/uL (1.5-8.5); NEUTROPHILS % 73.1 % (36.0-66.0); PLATELET COUNT, AUTOMATED 309 10^3/uL (150-450); RED BLOOD COUNT 4.93 10^6/uL (4.00-5.40); WHITE BLOOD COUNT 12.8 10^3/uL (4.0-10.0)
[2021-08-06 11:51] LABS: HEPATITIS C VIRUS ABY INDEX 0.1 INDEX (<0.8); HIV 1&2 SCREEN CENTAUR NEGATIVE (NEGATIVE)
[2021-08-06 12:50] LABS: GC DNA AMPLIFICATION NEGATIVE (NEGATIVE)
== END ==
LOC: M PLALAB 08:27
PROVIDERS: ATTEND Advanced Practice Midwife
DX: O34.211 Maternal care for low transverse scar from previous cesarean delivery (principal)

== ENCOUNTER 2021-08-11 12:00 | Outpatient (RCR) | payer BC, MEDICAID | END 2021-08-12 | LOC: M OUTALCOH 12:00 | PROVIDERS: ATTEND Psychiatry & Neurology Psychiatry | DX: F11.20 Opioid dependence, uncomplicated (principal); F12.20 Cannabis dependence, uncomplicated; F16.10 Hallucinogen abuse, uncomplicated; F17.200 Nicotine dependence, unspecified, uncomplicated ==

== ENCOUNTER → 2021-08-12 | Outpatient (REF) | payer BC | LOC: M SFHCWAGY 14:13 | PROVIDERS: ATTEND Obstetrics & Gynecology | DX: Z12.4 Encounter for screening for malignant neoplasm of cervix (principal) ==

== ENCOUNTER 2021-08-25 12:00 | Outpatient (RCR) | payer BC ==
[2021-08-28] MEDS ORDERED: SUBO8MIS SL (08:22)
[2021-08-29] MEDS ORDERED: MULTTAB20 PO (08:37)
== END 2021-09-12 ==
LOC: M OUTALCOH 12:00
PROVIDERS: ATTEND Psychiatry & Neurology Psychiatry
DX: F11.20 Opioid dependence, uncomplicated (principal); F12.20 Cannabis dependence, uncomplicated; F16.10 Hallucinogen abuse, uncomplicated; F17.200 Nicotine dependence, unspecified, uncomplicated

== ENCOUNTER 2021-08-28 08:15 | Emergency (ER) | payer BC ==
[~2021-08-28] VITALS: Ht 162.6 cm; Wt 57.0 kg
[2021-08-28 08:17] VITALS: BP 107/61
[2021-08-28] MEDS ORDERED: SUBO8MIS SL (08:22)
--- OUTSIDE RECORDS SUMMARY | 2021-08-28 08:22 | CCD | Continuity of Care Document ---
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 20tabs J20.9 José Miguel Garcia JR., M.D. 08/17/2021 Proair HFA 108(90Base) mcg/Act Aer osol 2 puff every 4 hours as needed sob/wheezing 17gm J20.9 José Miguel Garcia JR., M.D. 08/17/2021 Suboxone 8-2mg Film Unknown Unknown Immunizations Description No Information Available Vital Signs Date Vital Result Comment 08/17/2021 1:03pm BP Systolic 109 mmHg BP Diastolic 68 mmHg Heart Rate 84 /min Respiratory Rate 16 /min O2 % BldC Oximetry 97 % Body Temperature 98.3 F Weight 130.00 lb Height 64 inches 5'4" BMI (Body Mass Index) 22.3 kg/m2 Pain Level 0 02/21/2021 1:15pm BP Systolic 104 mmHg BP Diastolic 65 mmHg Heart Rate 68 /min Respiratory Rate 16 /min O2 % BldC Oximetry 98 % Body Temperature 98.9 F Weight 110.00 lb Height 66 inches 5'6" BMI (Body Mass Index) 17.8 kg/m2 Pain Level 6 Results Description No Information Available Procedures Date Code Description Status 08/17/2021 65593 Office/Outpatient Established Lo w MDM 20-29 Min Completed 02/21/2021 23754 Office/Outpatient Established Lo w MDM 20-29 Min Completed Medical Devices Description No Information Available Encounters Type Date Location Provider Dx Diagnosis Office Visit 08/17/2021 10:35a Main Office ERWIN Anne J20 .9 Acute bronchitis, unspecified Z72.0 Tobacco use Z20.828 Contact w and exposure to ot h viral communicable diseases Office Visit 02/21/2021 1:00p Main Office ERWIN hCeek J01.90 Acute sinusitis, unspecified U07.1 Covid-19 Assessments Date Code Description Provider 08/17/2021 J20.9 Acute bronchitis, unspecified [place] ERWIN Wheeler 08/17/2021 Z72.0 Tobacco use ERWIN Medina 08/17/2021 Z20.828 Contact with and ([place] spe[place]) exposure to other viral communicable diseases ERWIN Anne 02/21/2021 J01.90 Acute sinusitis, unspecified ERWIN Leone 02/21/2021 U07.1 Covid-19 ERWIN Cheek Plan of Treatment No Information Available Functional Status Description No Information Available Mental Status Description No Information Available Referrals Description No Information Available
--- OUTSIDE RECORDS SUMMARY | 2021-08-28 08:22 | CCD | Continuity of Care Document ---
Author Author Aki LEMOS PA Organization Unknown Address [facility] [address] Phone [phone] Care Team Providers Care Lathing Supervisor Name Role Phone [facility] [phone] Problems Description No Information Available Social History [...] Available Procedures Date Code Description Status 08/17/2021 08677 Office/Outpatient Established Lo w MDM 20-29 Min Completed 02/21/2021 62756 Office/Outpatient Established Lo w MDM 20-29 Min Completed Medical Devices Description No Information Available Encounters Type Date Location Provider Dx Diagnosis Office Visit 08/17/2021 10:35a Main Office ERWIN Anne J20 .9 Acute bronchitis, unspecified Z20.828 Contact w and exposure to ot h viral communicable diseases Office Visit 02/21/2021 1:00p Main Office ERWIN Cheek J01.90 Acute sinusitis, unspecified U07.1 Covid-19 Assessments Date Code Description Provider 08/17/2021 J20.9 Acute bronchitis, unspecified Mi ERWIN Wheeler 08/17/2021 Z20.828 Contact with and (orlando spected) exposure to other viral communicable diseases ERWIN Anne 02/21/2021 J01.90 Acute sinusitis, unspecified ERWIN Leone 02/21/2021 U07.1 Covid-19 ERWIN Cheek Plan of Treatment No Information Available Functional Status Description No Information Available Mental Status Description No Information Available Referrals Description No Information Available
--- OUTSIDE RECORDS SUMMARY | 2021-08-28 08:22 | CCD ---
Author Author [facility] Organization [facility] Address Unknown Phone Unavailable Support Name Relationship Address Phone UNEMPLOYED Next Of Kin Unknown KMMERLENE Next Of Kin [address] [place] [address] Lon LEWIS, Asael Next Of Kin [address] [place] [address] HERMES HARKINS Next Of Kin [address] [place] [address] AHMET ARDON Next Of Kin [address] [facility] [address] [place] [address] Compa VITALE, Rosa Maria Next Of Kin [address] [place] [phone] Clyde Haley MD Next Of Kin [address] [place] [address] Shaista Causey Next Of Kin [address] [place] [address] Amina ANP-BC, Perlita Next Of Kin [address] [place] [id number] DEB ACOSTA Next Of Kin [address] [place] [address] SUPERWALM Next Of Kin [address] [place] [address] [employer] Next Of Kin [address] [place] [address] NONE, NONE Next [place] [address] [employer] Next Of Kin [place] [phone] NELLY GARDINER Next Of Kin [address] [facility] [place] [address] UE Next Of Kin Unknown Unavailable HERMES WAGONER Next Of Kin [address] [facility] [address] [place] [address] ST Next Of Kin Unknown Unavailable SHIKHA FRANCISCO Next Of Kin [address] [place] [address] Care Team Providers Care Lamp Developer Name Role Phone LETTIERE, A REJI PA Unavailable Unavailable LETTIERE, A REJI PA Unavailable Unavailable LETTIERE, A REJI PA Unavailable Unavailable LETTIERE, A REJI PA Unavailable Unavailable LETTIERE, A REJI PA Unavailable Unavailable LETTIERE, A REJI PA Unavailable Unavailable LETTIERE, A REJI PA Unavailable Unavailable LETTIERE, A REJI PA Unavailable Unavailable LETTIERE, A REJI PA Unavailable Unavailable LETTIERE, A REJI PA Unavailable Unavailable LETTIERE, A REJI PA Unavailable Unavailable LETTIERE, A REJI PA Unavailable Unavailable LETTIERE, A REJI PA Unavailable Unavailable LETTIERE, A REJI PA Unavailable Unavailable LETTIERE, A REJI PA Unavailable Unavailable LETTIERE, A REJI PA Unavailable Unavailable LETTIERE, A REJI PA Unavailable Unavailable LETTIERE, A REJI PA Unavailable Unavailable LETTIERE, A REJI PA Unavailable Unavailable LETTIERE, A REJI PA Unavailable Unavailable LETTIERE, A REJI PA Unavailable Unavailable LETTIERE, A REJI PA Unavailable Unavailable LETTIERE, A REJI PA Unavailable Unavailable LETTIERE, A REJI PA Unavailable Unavailable LETTIERE, A REJI PA Unavailable Unavailable LETTIERE, A REJI PA Unavailable Unavailable LETTIERE, A REJI PA Unavailable Unavailable LETTIERE, A REJI PA Unavailable Unavailable LETTIERE, A REJI PA Unavailable Unavailable LETTIERE, A REJI PA Unavailable Unavailable LETTIERE, A REJI PA Unavailable Unavailable Jeannie BEJARANO MD Unavailable Unavailable Jeannie BEJARANO MD Unavailable Unavailable Jeannie BEJARANO MD Unavailable Unavailable Jeannie BEJARANO MD Unavailable Unavailable Jeannie BEJARANO MD Unavailable Unavailable Jeannie BEJARANO MD Unavailable Unavailable Jeannie BEJARANO MD Unavailable Unavailable Jeannie BEJARANO MD Unavailable Unavailable Jeannie BEJARANO MD Unavailable Unavailable Jeannie BEJARANO MD Unavailable Unavailable Jeannie BEJARANO MD Unavailable Unavailable Jeannie BEJARANO MD Unavailable Unavailable Jeannie BEJARANO MD Unavailable Unavailable Jeannie BEJARANO MD Unavailable Unavailable Jeannie BEJARANO MD Unavailable Unavailable Jeannie BEJARANO MD Unavailable Unavailable Jeannie BEJARANO MD Unavailable Unavailable LON, T ASAEL MD Unavailable Unavailable Jeannie BEJARANO MD Unavailable Unavailable Jeannie BEJARANO MD Unavailable Unavailable Jeannie BEJARANO MD Unavailable Unavailable Jeannie BEJARANO MD Unavailable Unavailable Jeannie BEJARANO MD Unavailable Unavailable Jeannie BEJARANO MD Unavailable Unavailable Jeannie BEJARANO MD Unavailable Unavailable Jeannie BEJARANO MD Unavailable Unavailable Jeannie BEJARANO MD Unavailable Unavailable Jeannie BEJARANO MD Unavailable Unavailable Jeannie BEJARANO MD Unavailable Unavailable Jeannie BEJARANO MD Unavailable Unavailable Jeannie BEJARANO MD Unavailable Unavailable Jeannie BEJARANO MD Unavailable Unavailable Jeannie BEJARANO MD Unavailable Unavailable Jeannie BEJARANO MD Unavailable Unavailable Jeannie BEJARANO MD Unavailable Unavailable Jeannie BEJARANO MD Unavailable Unavailable Jeannie BEJARANO MD Unavailable Unavailable Jeannie BEJARANO MD Unavailable Unavailable Jeannie BEJARANO MD Unavailable Unavailable Jeannie BEJARANO MD Unavailable Unavailable Jeannie BEJARANO MD Unavailable Unavailable Jeannie BEJARANO MD Unavailable Unavailable Jeannie BEJARANO MD Unavailable Unavailable Jeannie BEJARANO MD Unavailable Unavailable Jeannie BEJARANO MD Unavailable Unavailable Jeannie BEJARANO MD Unavailable Unavailable Jeannie BEJARANO MD Unavailable Unavailable Jeannie BEJARANO MD Unavailable Unavailable Jeannie BEJARANO MD Unavailable Unavailable Jeannie BEJARANO MD Unavailable Unavailable Jeannie BEJARANO MD Unavailable Unavailable Jeannie BEJARANO MD Unavailable Unavailable Jeannie BEJARANO MD Unavailable Unavailable Jeannie BEJARANO MD Unavailable Unavailable Jeannie BEJARANO MD Unavailable Unavailable Jeannie BEJARANO MD Unavailable Unavailable Jeannie BEJARANO MD Unavailable Unavailable Jeannie BEJARANO MD Unavailable Unavailable Jeannie BEJARANO MD Unavailable Unavailable Jeannie BEJARANO MD Unavailable Unavailable Jeannie BEJARANO MD Unavailable Unavailable Jeannie BEJARANO MD Unavailable Unavailable Jeannie BEJARANO MD Unavailable Unavailable Jeannie BEJARANO MD Unavailable Unavailable Jeannie BEJARANO MD Unavailable Unavailable Jeannie BEJARANO MD Unavailable Unavailable Jeannie BEJARANO MD Unavailable Unavailable Jeannie BEJARANO MD Unavailable Unavailable Jeannie BEJARANO MD Unavailable Unavailable Jeannie BEJARANO MD Unavailable Unavailable Jeannie BEJARANO MD Unavailable Unavailable Jeannie BEJARANO MD Unavailable Unavailable LON, Jeannie VYAS MD Unavailable Unavailable LON, Jeannie VYAS MD Unavailable Unavailable LON, Jeannie VYAS MD Unavailable Unavailable LON, Jeannie VYAS MD Unavailable Unavailable LON, T ASAEL LEWIS Unavailable Unavailable LON, T ASAEL LEWIS Unavailable Unavailable LON, T ASAEL LEWIS Unavailable Unavailable LON, Jeannie VYAS MD Unavailable Unavailable LON, Jeannie VYAS MD Unavailable Unavailable LON, Jeannie VYAS MD Unavailable Unavailable LON, Jeannie VYAS MD Unavailable Unavailable LON, Jeannie VYAS MD Unavailable Unavailable LON, T ASAEL LEWIS Unavailable Unavailable LON, T ASAEL LEWIS Unavailable Unavailable LON, T ASAEL LEWIS Unavailable Unavailable LON, Jeannie VYAS MD Unavailable Unavailable LON, T ASAEL LEWIS Unavailable Unavailable RING, K SOFIA PA Unavailable Unavailable RING, K SOFIA PA Unavailable Unavailable RING, K SOFIA PA Unavailable Unavailable RING, K SOFIA PA Unavailable Unavailable RING, K SOFIA PA Unavailable Unavailable RING, K SOFIA PA Unavailable Unavailable RING, K SOFIA PA Unavailable Unavailable RING, K SOFIA PA Unavailable Unavailable RING, K SOFIA PA Unavailable Unavailable RING, K SOFIA PA Unavailable Unavailable RING, K SOFIA PA Unavailable Unavailable RING, K SOFIA PA Unavailable Unavailable RING, K SOFIA PA Unavailable Unavailable RING, K SOFIA PA Unavailable Unavailable RING, K SOFIA PA Unavailable Unavailable RING, K SOFIA PA Unavailable Unavailable RING, K SOFIA PA Unavailable Unavailable RING, K SOFIA PA Unavailable Unavailable RING, K SOFIA PA Unavailable Unavailable RING, K SOFIA PA Unavailable Unavailable RING, K SOFIA PA Unavailable Unavailable Re-disclosure Warning The records that you are about to access may contain information from federally-assisted alcohol or drug abuse programs. If such information is present, then the following federally mandated warning applies: This information has been disclosed to you from records protected by federal confidentiality rules (42 CFR part 2). The federal rules prohibit you from making any further disclosure of this information unless further disclosure is expressly permitted by the written consent of the person to whom it pertains or as otherwise permitted by 42 CFR part 2. A general authorization for the release of medical or other information is NOT sufficient for this purpose. The Federal rules restrict any use of the information to criminally investigate or prosecute any alcohol or drug abuse patient.The records that you are about to access may contain highly sensitive health information, the redisclosure of which is protected by Article 27-F of the [place] State Public Health law. If you continue you may have access to information: Regarding HIV / AIDS; Provided by facilities licensed or operated by the [facility] Office of Mental Health; or Provided by the [facility] Office for People With Developmental Disabilities. If such information is present, then the following [facility] mandated warning applies: This information has been disclosed to you from confidential records which are protected by state law. State law prohibits you from making any further disclosure of this information without the specific written consent of the person to whom it pertains, or as otherwise permitted by law. Any unauthorized further disclosure in violation of state law may result in a fine or intermediate sentence or both. A general authorization for the release of medical or other information is NOT sufficient authorization for further disc losure. Family History Family Member Name Family Member Gender Family Member Status Date o f Status Description Data Source(s) Unknown Unknown Problem MEDENT ([facility]) mother Encounters Encounter Providers Location Date Indications Data Source(s ) Outpatient Attender: REJI Dominguez Prim wendy 08/17/2021 10:35:00 AM EDT MEDENT ([facility]) ( ESTOB) [facility] OB [address] [place] [address] 08/12/2021 12:00:00 AM EDT [facility] [address] [facility] [address] 07/15/2021 12:00:00 AM EDT [facility]CW1 [facility] ( NEW) [facility] OB Visit [address] [place] [address] 07/14/2021 12:00:00 AM EDT [facility] Outpatient Attender: SOFIA Dominguez Primary 02/21/2021 01:00:00 PM EDT MEDENT ([facility]) Outpatient Attender: SOFIA Dominguez Primary 02/11/2021 11:15:00 AM EDT MEDENT ([facility]) Outpatient Attender: ASAEL BEJARANO MD 07/03/2020 02:24:01 P M EDT [facility] Immunizations Vaccine Date Status Description Data Source(s) COVID-19 VACCINE Moderna 04/13/2021 12:00:00 AM EDT completed [facility] Vaccine Series Complete: YESThis Data wa s Submitted to [facility] Via [employer]. COVID-19 VACCINE Moderna 03/16/2021 12:00:00 AM EDT completed [facility] Vaccine Series Complete: NOThis Data was Submitted to [facility] [employer]. Medications Medication Brand Name Start Date Product Form Dose Route Admi nistrative Instructions Pharmacy Instructions Status Indications Reaction Description Data Source(s) Amoxicillin 875 MG Oral Tablet Amoxicillin 08/17/2021 12:00:00 AM EDT active MEDENT ([facility]) 200 ACTUAT Albuterol 0.09 MG/ACTUAT Metered Dose Inhaler [Pr oAir] Proair HFA 08/17/2021 12:00:00 AM EDT RESPIRATORY active MEDENT ([facility]) Insurance Providers Payer name Policy type / Coverage type Policy ID Covered constitution party ID Covered constitution party's relationship to mcadams Policy Mcadams Plan Information [facility] PLAN [id number] SP [id number] [facility] Health Maintenance Organization ([facility] [id number] Self [id number] Managed Care - Community Plan [facility] P [id number] S [id number] [facility] [id number] SP [id number] [facility] [id number] SP [id number] Medicaid S [id number] S [id number] Managed Care - Community Plan [facility] P [id number] S [id number] UN COMMUNITY PLAN [facility] [id number] SP [id number] Medicaid S [id number] S [id number] Medicaid S [id number] S [id number] [facility] Health Maintenance Organization ([facility] [id number] Self [id number] [facility] Health Maintenance Organization ([facility] [id number] Self [id number] [facility] Health Maintenance Organization ([facility] [id number] Self [id number] [facility] Health Maintenance Organization ([facility] [id number] Self [id number] [facility] Health Maintenance Organization ([facility]) [id number] Self [id number] [facility] Health Maintenance [facility] ([facility]) [id number] Self [id number] [facility] Health Maintenance Organization ([facility]) [id number] Self [id number] [facility] P UNAVAILABLE S UNAVAILABLE D Managed Care [facility] P [id number] S [id number] Managed Care BCBS O [id number] S [id number] Medicaid Dental O [id number] S [id number] Medicaid O [id number] S [id number] BLUE CROSS OTHER 1 [id number] SP [id number] SELF PAY UNAVAILABLE SP UNAVAILA BLE EXCELLUS BCBS P [id number] S [id number] BLUE CROSS SYKES PLAN [id number] SP [id number] BCBS FRANCIA HMO [id number] SP [id number] BCBS FRANCIA O [id number] SP [id number] [facility] COMM[facility]ITY PLAN [id number] SP [id number] Managed Care - [facility] Community Plan P [id number] S [id number] [facility](MCAID) O [id number] S [id number] Self Pay P UNAVAILABLE S UNAVAILA BLE [facility] ([facility]) [id number] Self [id number] [facility] ([facility]) [id number] Self [id number] [facility] ([facility]) [id number] Self [id number] [facility] ([facility]) [id number] Self [id number] Problems, Conditions, and Diagnoses Code Display Name Description Problem Type Effective Dates Data Source(s) F19.11 [id number] History of substance abuse Problem 12:00:00 AM EDT eCW1 ([facility]) Z34.80 care Supervision of other normal P july 07/12/2021 12:00:00 AM EDT eCW1 ([facility]) Surgeries/Procedures Procedure Description Date Indications Data Source(s) OFFICE OUTPATIENT VISIT 15 MINUTES 08/17/2021 12:00:00 AM EDT MEDENT ([facility]) OFFICE OUTPATIENT VISIT 15 MINUTES 02/21/2021 12:00:00 AM EDT MEDENT ([facility], [facility]) Results ID Date Data Source [id number] 08/17/2021 12:00:00 AM EDT [facility] Name Value Range Interpretation Code Description Data Coco rce(s) Supporting Document(s) SARS-CoV2 Rapid Antigen Negative [facility] This lab was ordered by [facility] and reported by [facility]. ID Date Data Source [id number] 02/11/2021 12:00:00 AM EDT [facility] Name Value Range Interpretation Code Description Data Coco rce(s) Supporting Document(s) SARS-CoV2 Rapid Antigen Positive [facility] This lab was ordered by [facility] and reported by [facility]. ID Date Data Source [id number] 08/26/2020 01:00:00 PM EDT [facility] Name Value Range Interpretation Code Description Data Coco rce(s) Supporting Document(s) SARS coronavirus 2 RNA [facility] This lab was ordered by [facility] and reported by [facility]. Procedure Social History Code Duration Value Status Description Data Source(s ) Smoking 08/10/2021 12:00:00 AM EDT Current Smoker completed Curre nt Smoker eCW1 ([facility]) Smoking 07/14/2021 12:00:00 AM EDT Current Smoker completed Curre nt Smoker eCW1 ([facility]) Smoking 07/14/2021 12:00:00 AM EDT Current Smoker completed Curre nt Smoker eCW1 ([facility]) Vital Signs ID Date Data Source UNK Name Value Range Interpretation Code Description Data Source(s) Systolic blood pressure 109 mm[Hg] 109 mm[Hg] M EDENT ([facility], [facility]) Diastolic blood pressure 68 mm[Hg] 68 mm[Hg] MEDENT ([facility], [facility]) Heart rate 84 /min 84 /min [facility] ([facility], [facility]) Respiratory rate 16 /min 16 /min [facility] ( [facility]) Oxygen saturation in Arterial blood by Pulse oximetry 97 % 97 % [facility] ([facility]) Body temperature 98.3 [degF] 98.3 [degF] [facility] ([facility]) Body weight 130.00 [lb_av] 130.00 [lb_av] MEDEN T ([facility], [facility]) Body height 64 [in_i] 64 [in_i] [facility] ([facility]) 5'4" Body mass index (BMI) [Ratio] 22.3 kg/m2 22.3 k g/m2 [facility] ([facility]) Body weight 129.2 [lb_av] 129.2 [lb_av] eCW1 ([facility]) Body weight 58.6 kg 58.6 kg eCW1 ([facility]) Body height 64 [in_i] 64 [in_i] eCW1 ([facility]) Body mass index (BMI) [Ratio] 22.177 kg/m2 22.1 77 kg/m2 [facility] ([facility]) Systolic blood pressure 106 mm[Hg] 106 mm[Hg] e CW1 ([facility]) Diastolic blood pressure 64 mm[Hg] 64 mm[Hg] eCW1 ([facility]) Body weight 124 [lb_av] 124 [lb_av] eCW1 ([facility]) Body height 64 [in_i] 64 [in_i] eCW1 ([facility]) Body mass index (BMI) [Ratio] 21.285 kg/m2 21.2 85 kg/m2 eCW1 ([facility]) Systolic blood pressure 92 mm[Hg] 92 mm[Hg] e CW1 ([facility]) Diastolic blood pressure 60 mm[Hg] 60 mm[Hg] eCW1 ([facility]) Body weight 110.00 [lb_av] 110.00 [lb_av] MEDEN T ([facility]) Oxygen saturation in Arterial blood by Pulse oximetry 98 % 98 % [facility] ([facility], [facility]) Body temperature 98.9 [degF] 98.9 [degF] MEDENT ([facility], [facility]) Body height 66 [in_i] 66 [in_i] MEDENT ([facility]) 5'6" Body mass index (BMI) [Ratio] 17.8 kg/m2 17.8 k g/m2 MEDENT ([facility], [facility]) Respiratory rate 16 /min 16 /min MEDENT ( [facility], [facility]) Systolic blood pressure 104 mm[Hg] 104 mm[Hg] M EDENT ([facility], [facility]) Diastolic blood pressure 65 mm[Hg] 65 mm[Hg] MEDENT ([facility], [facility]) Heart rate 68 /min 68 /min MEDENT ([facility]) Systolic blood pressure 107 mm[Hg] 107 mm[Hg] M EDENT ([facility], [facility]) Diastolic blood pressure 74 mm[Hg] 74 mm[Hg] [facility] ([facility], [facility]) Heart rate 85 /min 85 /min [facility] ([facility], [facility]) Respiratory rate 16 /min 16 /min [facility] ( [facility], [facility]) Oxygen saturation in Arterial blood by Pulse oximetry 95 % 95 % [facility] ([facility], [facility]) Body temperature 97.8 [degF] 97.8 [degF] [facility] ([facility], [facility]) Body weight 120.00 [lb_av] 120.00 [lb_av] [facility]) Body height 64 [in_i] 64 [in_i] [facility] ([facility]) 5'4" Body mass index (BMI) [Ratio] 20.6 kg/m2 20.6 k g/m2 [facility] ([facility], [facility])
--- OUTSIDE RECORDS SUMMARY | 2021-08-28 08:22 | CCD ---
Author Author [facility] Organization [facility] Address Unknown Phone Unavailable Care Team Providers Care Nuclear Medicine Supervisor Name Role Phone Nyla Turcios Unavailable PROBLEMS Type Condition ICD9-CM Code [id number] Code Onset Dates Condition S tatus W/U Status Risk SNOMED Code Notes Problem Major depression, recurrent 296.30 Active confirmed 57433900 Problem Supervision of other normal Z34.80 Ac tive confirm 967857751 Problem Tobacco use 305.1 Active confirmed 07083077 0 Problem Irregular menses 626.4 Active confirmed 386 931353 Problem Pelvic pain in female 625.9 Active confirmed 835166671 Problem Insomnia related to another mental disorder 300.9 Active confirmed [id number] ALLERGIES No Known Allergies ENCOUNTERS from 1994 to 2021-07-15 Encounter Location Date Provider Diagnosis [facility] [address] [place] [address] [place] [address] Jul, Nyla Sparrownikkyestella Maternal care due to low transverse uterine scar from previous delivery O34.211 ; 8 weeks gestation of Z3A.08 and Tobacco abuse Z72.0 IMMUNIZATIONS No Information SOCIAL HISTORY Tobacco Use: Social History Observation Description Date Details (start date - stop date) Current Smoker Sex Assigned At : Social History Observation Description Sex Assigned At Unknown Tobacco Use: Question Answer Notes Are you a: current smoker How many cigarettes a day do you smoke? 20 REASON FOR REFERRAL No Information VITAL SIGNS Weight 124 lbs Jul, Height 64 in Jul, BMI 21.285 kg/m2 Jul, Blood pressure systolic 92 mm Hg Jul, Blood pressure diastolic 60 mm Hg Jul, MEDICATIONS Medication SIG (Take, Route, Frequency, Duration) Notes Start Da te End Date Status Trazodone 50 50mg 1 -2 tabs nightly oral nightly for 30 days Oct, Not-Taking Suboxone 8-2 MG 16mg Sublingual Once a day Active Lexapro 10 10 mg 1 tablet for 1 week then inc rease to 2 tabs oral daily for 30 days Oct, Not-Taking PROCEDURES No Information RESULTS No Results REASON FOR VISIT 1st pn MEDICAL (GENERAL) HISTORY Type Description Date Medical History anxiety/ depression Medical History hx of opiate abuse Surgical History Laparoscopy diagnostic-pelvic pain Nov 14 014 Surgical History Hospitalization History 2 times for depression/overdose 2008 Hospitalization History Childbirth Goals Section No Information Health Concerns No Information MEDICAL EQUIPMENT No Information MENTAL STATUS No Information FUNCTIONAL STATUS No Information ASSESSMENTS Encounter Date Diagnosis Assessment Notes Treatment Notes Treatm ent Clinical Notes Jul, Maternal care due to low tra nsverse uterine scar from previous delivery (ICD-10 - O34.211) Jul, 8 weeks gestation of (ICD-10 - Z3A.08) Jul, Tobacco abuse (ICD-10 - Z72.0) PLAN OF TREATMENT Treatment Notes Test Name Order Date HIV 1&2 ANTIBODY SCREEN 2021-07-14 SYPHILIS ANTIBODY (RPR SCREEN) 2021-07-14 CBC - Complete Blood Count 2021-07-14 RUBELLA IMMUNE STATUS IgG 2021-07-14 URINE CULTURE 2021-07-14 CHLAMYDIA & GC DNA AMPLIFICAT 2021-07-14 HEPATITIS C ANTIBODY INDEX 2021-07-14 HBSAG 2021-07-14 Type and Screen Prenatal1 2021-07-14 DRUG PROF UR QL (INC CANNAB) 2021-07-14 Next Appt Details 4 Weeks Reason:- Routine follow up Provider Name:Nick Walton, 09:00:00 AM, [address] [facility], , [place], [address], Follow Up:4 Weeks- Routine follow up Insurance Providers Payer Name Payer Address Payer Phone Insured Name Patient Relati onship to Insured Coverage Start Date Coverage End Date [place] [id number] [place] FRANCIS[place] self
--- OUTSIDE RECORDS SUMMARY | 2021-08-28 08:22 | CCD ---
Author Author [facility] Organization [facility] Address Unknown Phone Unavailable Care Team Providers Care Professional Advisor Name Role Phone Eugenio Rush Unavailable PROBLEMS Type Condition ICD9-CM Code [id number] Code Onset Dates Condition S tatus W/U Status Risk SNOMED Code Notes Problem Major depression, recurrent 296.30 Active confirmed 15896000 Problem Supervision of other normal Z34.80 Ac tive confirm 007279220 Problem Tobacco use 305.1 Active confirmed 71933676 0 Problem Irregular menses 626.4 Active confirmed 386 709635 Problem Pelvic pain in female 625.9 Active confirmed 128542662 Problem Insomnia related to another mental disorder 300.9 Active confirmed [id number] ALLERGIES No Known Allergies ENCOUNTERS from 1994 to 2021-07-16 Encounter Location Date Provider Diagnosis [facility] Breast Care [address] [place] [address] [place] [address] Jul, Eugenio Rush IMMUNIZATIONS No Information SOCIAL HISTORY Tobacco Use: Social History Observation Description Date Details (start date - stop date) Current Smoker Sex Assigned At : Social History Observation Description Sex Assigned At Unknown Tobacco Use: Question Answer Notes Are you a: current smoker How many cigarettes a day do you smoke? 11-20 REASON FOR REFERRAL No Information VITAL SIGNS No information MEDICATIONS Medication SIG (Take, Route, Frequency, Duration) [...] Information RESULTS No Results REASON FOR VISIT n/s MEDICAL (GENERAL) HISTORY Type Description Date Medical History anxiety/ depression Medical History hx of opiate abuse Surgical History Laparoscopy diagnostic-pelvic pain Nov 14 014 Surgical History Hospitalization History 2 times for depression/overdose 2008 Hospitalization History Childbirth Goals Section No Information Health Concerns No Information MEDICAL EQUIPMENT No Information MENTAL STATUS No Information FUNCTIONAL STATUS No Information ASSESSMENTS No Information PLAN OF TREATMENT Next Appt Details Provider Name:Melvi Cruz, 2021-08-11 09:00:00 AM, [address] [place] [address], , [place], [address], Provider Name:Nick Walton, 09:00:00 AM, [address] [place] [address], , [place], [address], Insurance Providers Payer Name Payer Address Payer Phone Insured Name Patient Relati onship to Insured Coverage Start Date [facility]age End Date [facility] [address] [facility] [id number] [place] self
--- OUTSIDE RECORDS SUMMARY | 2021-08-28 08:22 | CCD ---
Author Author [facility] Organization [facility] Address Unknown Phone Unavailable Care Team Providers Care Body Shop Technician Name Role Phone Nick Walton Unavailable PROBLEMS Type Condition ICD9-CM Code [id number] Code Onset Dates Condition S tatus W/U Status Risk SNOMED Code Notes Problem Tobacco use 305.1 Active confirmed 04224548 0 Problem Supervision of other normal Z34.80 Ac tive confirm 017485622 Problem History of substance abuse F19.11 Active confirmed 902357497 Problem Irregular menses 626.4 Active confirmed 386 140602 Problem Pelvic pain in female 625.9 Active confirmed 780628245 Problem Insomnia related to another mental disorder 300.9 Active confirmed 214987376 Problem Major depression, recurrent 296.30 Active confirmed 31987652 ALLERGIES No Known Allergies ENCOUNTERS from 1994 to 2021-08-13 Encounter Location Date Provider Diagnosis [facility] [address] [facility] [phone] [place] [address] 30 Jul, 2021 Nick Walton Maternal care for lo w transverse scar from previous delivery O34.211 ; History of substance abuse F19.11 ; 12 weeks gestation of Z3A.12 and Encounter for screening for malignant ne oplasm of cervix Z12.4 IMMUNIZATIONS No Information SOCIAL HISTORY Tobacco Use: Social History Observation Description Date Details (start date - stop date) Current Smoker Sex Assigned At : Social History Observation Description Sex Assigned At Unknown Tobacco Use: Question Answer Notes Are you a: current smoker How many cigarettes a day do you smoke? 11-20 REASON FOR REFERRAL No Information VITAL SIGNS Weight 129.2 lbs 30 Jul, 2021 Weight-kg 58.6 kg Jul, Height 64 in Jul, BMI 22.177 kg/m2 Jul, Blood pressure systolic 106 mm Hg Jul, Blood pressure diastolic 64 mm Hg Jul, MEDICATIONS Medication SIG (Take, Route, Frequency, Duration) Notes Start Da te End Date Status Trazodone 50 50mg 1 -2 tabs nightly oral nightly for 30 days Oct, Not-Taking Lexapro 10 10 mg 1 tablet for 1 week then inc rease to 2 tabs oral daily for 30 days Oct, Not-Taking Suboxone 8-2 MG 16mg Sublingual Once a day Active PROCEDURES No Information RESULTS No Results REASON FOR VISIT 4 WK PN MEDICAL (GENERAL) HISTORY Type Description Date Medical History anxiety/ depression Medical History hx of opiate abuse Surgical History Laparoscopy diagnostic-pelvic pain Nov 14 Surgical History Hospitalization History 2 times for depression/overdose 2008 Hospitalization History Childbirth Goals Section No Information Health Concerns No Information MEDICAL EQUIPMENT No Information MENTAL STATUS No Information FUNCTIONAL STATUS No Information ASSESSMENTS Encounter Date Diagnosis Assessment Notes Treatment Notes Treatm ent Clinical Notes Jul, Maternal care for low transv erse scar from previous delivery (ICD-10 - O34.211) Jul, History of substance abuse (ICD-10 - F19.11) Jul, 12 weeks gestation of (ICD-10 - Z3A.12 ) Jul, Encounter for screening for malignant neoplasm of cervix (ICD-10 - Z12.4) PLAN OF TREATMENT Treatment Notes Test Name Order Date PAP REQUEST FOR SERVICE 2021-08-12 Next Appt Details 4 Weeks Reason:PN Provider Name:Ashtyn Vazquez, 2021-09-09 10:00:00 AM, [address] [facility], , [place], [address], Follow Up:4 WeeksPN Insurance Providers Payer Name Payer Address Payer Phone Insured Name Patient Relati onship to Insured Coverage Start Date Coverage End Date [facility] [address] [facility] [id number] [place]ANCIS[place] self
--- OUTSIDE RECORDS SUMMARY | 2021-08-28 10:06 | CCD ---
Author Author [facility] Organization [facility] Address Unknown Phone Unavailable Support Name Relationship Address Phone UNEMPLOYED Next Of Kin Unknown KMMERLENE Next Of Kin [address] [place] [address] Lon LEWIS, Asael Next Of Kin [address] [place] [address] HERMES HARKINS Next Of Kin [address] [place] [address] AHMET ARDON Next Of Kin [address] [facility] [address] [place] [address] Compa VITALE, Rosa Maria Next Of Kin [address] [place] [phone] Clyde Haley MD Next Of Kin [address] [place] [address] Shaista Causey Next Of Kin [address] [place] [address] Amina ANP-BC, Perlita Next Of Kin [address] [place] [id number] DEB ACOSTA Next Of Kin [address] [place] [address] SUPERWALM Next Of Kin [address] [place] [address] [employer] Next Of Kin [address] [place] [address] NONE, NONE Next Of [place] [address] [employer] Next Of Kin [place] [id number] NELLY GARDINER Next Of Kin [address] [place] [address] UE Next Of Kin Unknown Unavailable HERMES WAGONER Next Of Kin [address] [facility] [address] [place] [address] ST Next Of Kin Unknown Unavailable SHIKHA FRANCISCO Next Of Kin [address] [place] [address] Care Team Providers Care Patternmaker Plaster And Plastic Name Role Phone LETTIERE, A REJI PA [...] Unavailable Unavailable Jeannie BEJARANO MD Unavailable Unavailable Jenanie BEJARANO MD Unavailable Unavailable Jeannie BEJARANO MD [...] is protected by Article 27-F of the [place] State Public Health law. If you continue you may have access to information: Regarding HIV / AIDS; Provided by facilities licensed or operated by the [facility] Office of Mental Health; or Provided by the [facility] Office for People With Developmental Disabilities. If such information is present, then the following [facility] mandated warning applies: This information has [...] law may result in a fine or fpc sentence or both. A general authorization for [...] Prim wendy 08/17/2021 10:35:00 AM EDT MED[facility] ([facility]) ( ESTOB) [facility] OB [address] [place] [address] 08/12/2021 12:00:00 AM EDT eCW1 ([facility]) Unknown [address] [facility] [address] 07/15/2021 12:00:00 AM EDT eCW1 ([facility]) ( NEW) [facility] OB Visit [address] [place] [address] 07/14/2021 12:00:00 AM EDT eCW1 ([facility]) Outpatient Attender: SOFIA Dominguez Primary 02/21/2021 01:00:00 PM EDT MEDENT ([facility]) Outpatient Attender: SOFIA Dominguez Primary 02/11/2021 11:15:00 AM EDT MEDENT ([facility]) Outpatient Attender: ASAEL BEJARANO MD 07/03/2020 02:24:01 P M EDT [facility] Immunizations Vaccine Date Status Description Data Source(s) COVID-19 VACCINE Moderna 04/13/2021 12:00:00 AM EDT completed [facility] Vaccine Series Complete: YESThis Data wa s Submitted to [facility] Via [employer]. COVID-19 VACCINE Moderna 03/16/2021 12:00:00 AM EDT completed [facility] Vaccine Series Complete: NOThis Data was Submitted to [facility] Via [employer]. Medications Medication Brand Name Start Date Product Form Dose Route Admi nistrative Instructions Pharmacy Instructions Status Indications Reaction Description Data Source(s) Amoxicillin 875 MG Oral Tablet Amoxicillin 08/17/2021 12:00:00 AM EDT active MEDENT ([facility]) 200 ACTUAT Albuterol 0.09 MG/ACTUAT Metered Dose Inhaler [Pr oAir] Proair HFA 08/17/2021 12:00:00 AM EDT RESPIRATORY active MEDENT ([facility]) Insurance Providers Payer name Policy type / Coverage type Policy ID Covered green party ID Covered green party's relationship to mcadams Policy Mcadams Plan Information [facility] PLAN [id number] SP [id number] [facility] Health Maintenance Organization ([facility] [id number] Self [id number] Managed Care - Community Plan [facility] P [id number] S [id number] [facility] [id number] SP [id number] [facility] COMMUNITY PLAN [facility] [id number] SP [id number] Medicaid S [id number] S [id number] Managed Care - Community Plan [facility] P [id number] S [id number] UN COMMUNITY PLAN [facility] [id number] SP [id number] Medicaid S [id number] S [id number] Medicaid S [id number] S [id number] [facility] Health Maintenance Organization ([facility]) [id number] Self [id number] [facility] Health Maintenance Organization ([facility]) [id number] Self [id number] [facility] Health Maintenance Organization ([facility]) [id number] Self [id number] [facility] Health Maintenance Organization ([facility]) [id number] Self [id number] [facility] Health Maintenance Organization ([facility]) [id number] Self [id number] [facility] Health Maintenance [facility] ([facility]) [id number] Self [id number] [facility] Health Maintenance Organization ([facility]) [id number] Self [id number] [facility] P UNAVAILABLE S UNAVAILABLE D Managed Care [facility] P [id number] S [id number] Managed Care BCBS O [id number] S [id number] Medicaid Dental O [id number] S [id number] Medicaid O [id number] S [id number] BLUE CROSS OTHER 1 [id number] SP [id number] SELF PAY UNAVAILABLE SP UNAVAILA BLE EXCELLUS BCBS P [id number] S [id number] BLUE CROSS SYKES PLAN [id number] SP [id number] BCBS FRANCIA HMO [id number] SP [id number] BCBS FRANCIA O [id number] SP [id number] [facility] COMMUNITY PLAN MCDHMO [id number] SP [id number] Managed Care - [facility] Community Plan P [id number] S [id number] [facility]) O [id number] S [id number] Self Pay P UNAVAILABLE S UNAVAILA BLE [facility] ([facility]) [id number] Self [id number] [facility] ([facility]) [id number] Self [id number] [facility] ([facility]) [id number] Self [id number] [facility] ([facility]) [id number] Self [id number] Problems, Conditions, and Diagnoses Code Display Name Description Problem Type Effective Dates Data Source(s) F19.11 [id number] History of substance abuse Problem 12:00:00 AM EDT eCW1 ([facility]) Z34.80 care Supervision of other normal P july 07/12/2021 12:00:00 AM EDT eCW1 ([facility]) Surgeries/Procedures Procedure Description Date Indications Data Source(s) OFFICE OUTPATIENT VISIT 15 MINUTES 08/17/2021 12:00:00 AM EDT [facility] ([facility]) OFFICE OUTPATIENT VISIT 15 MINUTES 02/21/2021 12:00:00 AM EDT [facility] ([facility]) Results ID Date Data Source [id number] 08/17/2021 12:00:00 AM EDT [facility] Name Value Range Interpretation Code Description Data Coco rce(s) Supporting Document(s) SARS-CoV2 Rapid Antigen Negative [facility] This lab was ordered by [facility] and reported by [facility]. ID Date Data Source [id number] 02/11/2021 12:00:00 AM EDT [facility] Name Value Range Interpretation Code Description Data Coco rce(s) Supporting Document(s) SARS-CoV2 Rapid Antigen Positive [facility] This lab was ordered by [facility] and reported by [facility]. ID Date Data Source [id number] 08/26/2020 01:00:00 PM EDT [facility] Name Value Range Interpretation Code Description Data Coco rce(s) Supporting Document(s) SARS coronavirus 2 RNA [facility] This lab was ordered by [facility] and reported by [facility]. Procedure Social History Code Duration Value Status Description Data Source(s ) Smoking 08/10/2021 12:00:00 AM EDT Current Smoker completed Curre nt Smoker eCW1 ([facility]) Smoking 07/14/2021 12:00:00 AM EDT Current Smoker completed Curre nt Smoker eCW1 ([facility]) Smoking 07/14/2021 12:00:00 AM EDT Current Smoker completed Curre nt Smoker eCW1 ([facility]) Vital Signs ID Date Data Source UNK Name Value Range Interpretation Code Description Data Source(s) Systolic blood pressure 109 mm[Hg] 109 mm[Hg] M EDENT ([facility]) Diastolic blood pressure 68 mm[Hg] 68 mm[Hg] MED[facility] ([facility]) Heart rate 84 /min 84 /min [facility] ([facility]) Respiratory rate 16 /min 16 /min [facility] ( [facility]) Oxygen saturation in Arterial blood by Pulse oximetry 97 % 97 % [facility] ([facility]) Body temperature 98.3 [degF] 98.3 [degF] [facility] ([facility]) Body weight 130.00 [lb_av] 130.00 [lb_av] MEDEN T ([facility]) Body height 64 [in_i] 64 [in_i] [facility] ([facility] 5'4" Body mass index (BMI) [Ratio] 22.3 kg/m2 22.3 k g/m2 [facility] ([facility]) Body weight 129.2 [lb_av] 129.2 [lb_av] eCW1 ([facility]) Body weight 58.6 kg 58.6 kg eCW1 ([facility]) Body height 64 [in_i] 64 [in_i] eCW1 ([facility]) Body mass index (BMI) [Ratio] 22.177 kg/m2 22.1 77 kg/m2 eCW1 ([facility]) Systolic blood pressure 106 mm[Hg] 106 mm[Hg] e CW1 ([facility]) Diastolic blood pressure 64 mm[Hg] 64 mm[Hg] eCW1 ([facility]) Body weight 124 [lb_av] 124 [lb_av] eCW1 ([facility]) Body height 64 [in_i] 64 [in_i] eCW1 ([facility]) Body mass index (BMI) [Ratio] 21.285 kg/m2 21.2 85 kg/m2 eCW1 ([facility]) Systolic blood pressure 92 mm[Hg] 92 mm[Hg] e CW1 ([facility]) Diastolic blood pressure 60 mm[Hg] 60 mm[Hg] eCW1 ([facility]) Body temperature 98.9 [degF] 98.9 [degF] [facility] ([facility]) Oxygen saturation in Arterial blood by Pulse oximetry 98 % 98 % [facility] ([facility]) Body weight 110.00 [lb_av] 110.00 [lb_av] MEDEN T ([facility]) Body height 66 [in_i] 66 [in_i] MEDENT ([facility]) 5'6" Body mass index (BMI) [Ratio] 17.8 kg/m2 17.8 k g/m2 [facility] ([facility]) Respiratory rate 16 /min 16 /min [facility] ( [facility]) Systolic blood pressure 104 mm[Hg] 104 mm[Hg] M EDENT ([facility]) Diastolic blood pressure 65 mm[Hg] 65 mm[Hg] MED[facility] ([facility]) Heart rate 68 /min 68 /min [facility] ([facility]) Systolic blood pressure 107 mm[Hg] 107 mm[Hg] M EDENT ([facility]) Diastolic blood pressure 74 mm[Hg] 74 mm[Hg] [facility] ([facility]) Heart rate 85 /min 85 /min [facility] ([facility]) Respiratory rate 16 /min 16 /min [facility] ( [facility]) Oxygen saturation in Arterial blood by Pulse oximetry 95 % 95 % [facility] ([facility]) Body temperature 97.8 [degF] 97.8 [degF] [facility] ([facility]) Body weight 120.00 [lb_av] 120.00 [lb_av] [facility]) Body height 64 [in_i] 64 [in_i] [facility] ([facility]) 5'4" Body mass index (BMI) [Ratio] 20.6 kg/m2 20.6 k g/m2 [facility] ([facility])
[2021-08-29] MEDS ORDERED: MULTTAB20 PO (08:37)
== END 2021-08-28 09:30 | disposition left against medical advice (07) ==
LOC: M ED 08:15
DX: Z53.21 Procedure and treatment not carried out due to patient leaving prior to being seen by health care provider (principal)

== ENCOUNTER 2021-08-29 07:55 | Emergency (ER) | payer BC ==
[~2021-08-29] VITALS: Ht 162.6 cm; Wt 59.1 kg
[~2021-08-29 07:55] MED LIST changes: +SUBO8MIS SL
[2021-08-29 07:56] VITALS: BP 114/58
--- OUTSIDE RECORDS SUMMARY | 2021-08-29 08:03 | CCD ---
Author Author [facility] Organization [facility] Address Unknown Phone Unavailable Support Name Relationship Address Phone UNEMPLOYED Next Of Kin Unknown KMMERLENE Next Of Kin [address] [place] [address] Lon LEWIS, Asael Next Of Kin [address] [place] [address] HERMES HARKINS Next Of Kin [address] [place] [address] AHMET ARDON Next Of Kin [address] [facility] [address] [place] [address] Compa VITALE, Rosa Maria Next Of Kin [address] [place] [phone] Clyde Haley MD Next Of Kin [address] [place] [address] Shaista Causey Next Of Kin [address] [place] [address] Amina ANP-BC, Perlita Next Of Kin [address] [place] [address] [id number] DEB ACOSTA Next Of Kin [address] [place] [address] [employer] Next Of Kin [address] [place] [address] [employer] [place] Next Of Kin [address] [place] [address] NONE, NONE Next Of [place] [address] [place] [address] NELLY GARDINER Next Of Kin [address] [facility] [address] UE Next Of Kin Unknown Unavailable HERMES WAGONRE Next Of Kin [address] [place] [address] ST Next Of Kin Unknown Unavailable SHIKHA FRANCISCO Next Of Kin [address] [place] [address] Care Team Providers Care Card Grinder Name Role Phone LETTIERE, A REJI PA [...] is protected by Article 27-F of the [place] State Public Health law. If you continue you may have access to information: Regarding HIV / AIDS; Provided by facilities licensed or operated by the [facility] Office of Mental Health; or Provided by the [facility] Office for People With Developmental Disabilities. If such information is present, then the following [facility] mandated warning applies: This information has [...] law may result in a fine or prison sentence or both. A general authorization for the release of medical or other information is NOT sufficient authorization for further disc losure. Family History Family Member Name Family Member Gender Family Member Status Date o f Status Description Data Source(s) Unknown Unknown Problem MEDENT ([facility]) mother Encounters Encounter Providers Location Date Indications Data Source(s ) Outpatient Attender: REJI Domignuez Prim wendy 08/17/2021 10:35:00 AM EDT MEDENT ([facility]) ( ESTOB) [facility] OB [address] [place] [address] 08/12/2021 12:00:00 AM EDT eCW1 ([facility]) Unknown [address] [facility] [address] 07/15/2021 12:00:00 AM EDT eCW1 ([facility]) ( NEW) [facility] OB Visit [address] [place] [address] 07/14/2021 12:00:00 AM EDT eCW1 ([facility]) Outpatient Attender: SOFIA Dominguez Primary 02/21/2021 01:00:00 PM EDT MEDENT ([facility]) Outpatient Attender: SOFIA Dominguez Primary 02/11/2021 11:15:00 AM EDT MEDENT ([facility]) Outpatient Attender: ASAEL BEJARANO MD 07/03/2020 02:24:01 P M EDT [facility] Immunizations Vaccine Date Status Description Data Source(s) COVID-19 VACCINE Moderna 04/13/2021 12:00:00 AM EDT completed [facility] Vaccine Series Complete: YESThis Data wa s Submitted to [facility] [employer]. COVID-19 VACCINE Moderna 03/16/2021 12:00:00 AM EDT completed [facility] Vaccine Series Complete: NOThis Data was Submitted to [facility] [employer]. Medications Medication Brand Name Start Date Product Form Dose Route Admi nistrative Instructions Pharmacy Instructions Status Indications Reaction Description Data Source(s) Amoxicillin 875 MG Oral Tablet Amoxicillin 08/17/2021 12:00:00 AM EDT active MEDENT ([facility]) 200 ACTUAT Albuterol 0.09 MG/ACTUAT Metered Dose Inhaler [Pr oAir] Proair HFA 08/17/2021 12:00:00 AM EDT RESPIRATORY active MEDENT ([facility]) Insurance Providers Payer name Policy type / Coverage type Policy ID Covered constitution party ID Covered constitution party's relationship to mcadams Policy Mcadams Plan Information [facility] PLAN [id number] SP [id number] [facility] Health Maintenance Organization ([facility] [id number] Self [id number] Managed Care - Community Plan [facility] P [id number] S [id number] [facility] [id number] SP [id number] [facility] COMMUNITY PLAN [facility] [id number] SP [id number] Medicaid S [id number] S [id number] Managed Care - Community Plan [facility] P [id number] S [id number] UN COMMUNITY PLAN [facility] [id number] SP [id number] Medicaid S [id number] S [id number] Medicaid S [id number] S [id number] [facility] Health Maintenance Organization ([facility] [id number] Self [id number] [facility] Health Maintenance Organization ([facility] [place] [facility] [id number] Self [id number] [facility] Health Maintenance Organization ([facility] [place] [facility] [id number] Self [id number] [facility] Health Maintenance Organization ([facility] [id number] Self [id number] [facility] Health Maintenance Organization ([facility] [id number] Self [id number] [facility] Health Maintenance [facility] ([facility] [facility] [id number] Self [id number] [facility] Health Maintenance Organization ([facility] [place] [facility] [id number] Self [id number] [facility] P UNAVAILABLE S UNAVAILABLE D Managed Care [facility] P [id number] S [id number] Managed Care BCBS O [id number] S [id number] Medicaid Dental O [id number] S [id number] Medicaid O [id number] S [id number] BLUE CROSS OTHER 1 [id number] SP [id number] SELF PAY UNAVAILABLE SP UNAVAILA BLE EXCELLUS BCBS P [id number] S [id number] [employer] SYKES PLAN [id number] SP [id number] BCBS FRANCIA HMO [id number] SP [id number] BCBS FRANCIA O [id number] SP [id number] [facility] COMMUNITY PLAN [id number] SP [id number] Managed Care - [facility] Community Plan P [id number] S [id number] [facility]) O [id number] S [id number] Self Pay P UNAVAILABLE S UNAVAILA BLE [facility] ([facility] [id number] Self [id number] [facility] ([facility] [id number] Self [id number] [facility] ([facility] [id number] Self [id number] [facility] ([facility] [id number] Self [id number] Problems, Conditions, and Diagnoses Code Display Name Description Problem Type Effective Dates Data Source(s) F19.11 [id number] History of substance abuse Problem 12:00:00 AM EDT eCW1 ([facility]) Z34.80 care Supervision of other normal P july 07/12/2021 12:00:00 AM EDT eCW1 ([facility]) Surgeries/Procedures Procedure Description Date Indications Data Source(s) OFFICE OUTPATIENT VISIT 15 MINUTES 08/17/2021 12:00:00 AM EDT MEDENT ([facility]) OFFICE OUTPATIENT VISIT 15 MINUTES 02/21/2021 12:00:00 AM EDT MEDENT ([facility]) Results ID Date Data Source [id number] 08/17/2021 12:00:00 AM EDT [facility] Name Value Range Interpretation Code Description Data Coco rce(s) Supporting Document(s) SARS-CoV2 Rapid Antigen Negative [facility] This lab was ordered by [facility] and reported by [facility]. ID Date Data Source [id number] 02/11/2021 12:00:00 AM EDT [facility] Name Value Range Interpretation Code Description Data Coco rce(s) Supporting Document(s) SARS-CoV2 Rapid Antigen Positive [facility] This lab was ordered by [facility] and reported by [facility]. ID Date Data Source [id number] 08/26/2020 01:00:00 PM EDT [facility] Name Value Range Interpretation Code Description Data Coco rce(s) Supporting Document(s) SARS coronavirus 2 RNA [facility] This lab was ordered by [facility] and reported by [facility]. Procedure Social History Code Duration Value Status Description Data Source(s ) Smoking 08/10/2021 12:00:00 AM EDT Current Smoker completed Curre nt Smoker eCW1 ([facility]) Smoking 07/14/2021 12:00:00 AM EDT Current Smoker completed Curre nt Smoker eCW1 ([facility]) Smoking 07/14/2021 12:00:00 AM EDT Current Smoker completed Curre nt Smoker eCW1 ([facility]) Vital Signs ID Date Data Source UNK Name Value Range Interpretation Code Description Data Source(s) Systolic blood pressure 109 mm[Hg] 109 mm[Hg] M EDENT ([facility]) Diastolic blood pressure 68 mm[Hg] 68 mm[Hg] MEDENT ([facility]) Heart rate 84 /min 84 /min [facility] Respiratory rate 16 /min 16 /min [facility] ( [facility]) Oxygen saturation in Arterial blood by Pulse oximetry 97 % 97 % [facility] ([facility]) Body temperature 98.3 [degF] 98.3 [degF] [facility] ([facility]) Body weight 130.00 [lb_av] 130.00 [lb_av] MEDEN T ([facility]) Body height 64 [in_i] 64 [in_i] [facility] ([facility]) 5'4" Body mass index (BMI) [Ratio] 22.3 kg/m2 22.3 k g/m2 [facility] ([facility]) Body weight 129.2 [lb_av] 129.2 [lb_av] eCW1 ([facility]) Body weight 58.6 kg 58.6 kg eCW1 ([facility]) Body height 64 [in_i] 64 [in_i] eCW1 ([facility]) Body mass index (BMI) [Ratio] 22.177 kg/m2 22.1 77 kg/m2 eCW1 ([facility]) Systolic blood pressure 106 mm[Hg] 106 mm[Hg] e CW1 ([facility]) Diastolic blood pressure 64 mm[Hg] 64 mm[Hg] eCW1 ([facility]) Body weight 124 [lb_av] 124 [lb_av] eCW1 ([facility]) Body height 64 [in_i] 64 [in_i] eCW1 ([facility]) Body mass index (BMI) [Ratio] 21.285 kg/m2 21.2 85 kg/m2 eCW1 ([facility]) Systolic blood pressure 92 mm[Hg] 92 mm[Hg] e CW1 ([facility]) Diastolic blood pressure 60 mm[Hg] 60 mm[Hg] eCW1 ([facility]) Oxygen saturation in Arterial blood by Pulse oximetry 98 % 98 % MEDENT ([facility]) Body weight 110.00 [lb_av] 110.00 [lb_av] MEDEN T ([facility]) Body height 66 [in_i] 66 [in_i] MEDENT ([facility]) 5'6" Body mass index (BMI) [Ratio] 17.8 kg/m2 17.8 k g/m2 MED[facility] ([facility]) Body temperature 98.9 [degF] 98.9 [degF] MEDENT ([facility]) Respiratory rate 16 /min 16 /min MED[facility] ( [facility]) Systolic blood pressure 104 mm[Hg] 104 mm[Hg] M EDENT ([facility]) Diastolic blood pressure 65 mm[Hg] 65 mm[Hg] MEDENT ([facility]) Heart rate 68 /min 68 /min MEDENT ([facility]) Systolic blood pressure 107 mm[Hg] 107 mm[Hg] M EDENT ([facility]) Diastolic blood pressure 74 mm[Hg] 74 mm[Hg] [facility] ([facility]) Heart rate 85 /min 85 /min [facility] ([facility]) Respiratory rate 16 /min 16 /min [facility] ( [facility]) Oxygen saturation in Arterial blood by Pulse oximetry 95 % 95 % [facility] ([facility]) Body temperature 97.8 [degF] 97.8 [degF] [facility] ([facility]) Body weight 120.00 [lb_av] 120.00 [lb_av] [facility] Body height 64 [in_i] 64 [in_i] [facility] ([facility] 5'4" Body mass index (BMI) [Ratio] 20.6 kg/m2 20.6 k g/m2 [facility] ([facility])
[2021-08-29] MEDS ORDERED: MULTTAB20 PO (08:37)
--- OUTSIDE RECORDS SUMMARY | 2021-08-29 08:37 | CCD ---
Author Author [facility] Organization [facility] Address Unknown Phone Unavailable Support Name Relationship Address Phone UNEMPLOYED Next Of Kin Unknown KMMERLENE Next Of Kin [address] [place] [address] Lon LEWIS, Asael Next Of Kin [address] [place] [address] HERMES HARKINS Next Of Kin [address] [place] [address] AHMET ARDON Next Of Kin [address] [facility] [address] [place] [address] Compa VITALE, Rosa Maria Next Of Kin [address] [place] [id number] Clyde Haley MD Next Of Kin [address] [place] [address] Shaista Causey Next Of Kin [address] [place] [address] Amina ANP-BC, Perlita Next Of Kin [address] [place] [id number] DEB ACOSTA Next Of Kin [address] [place] [address] [employer]PER[employer] Next Of Kin [address] [place] [address] [employer] [place] Next Of Kin [address] [place] [address] NONE, NONE Next Of [place] [address] [place] [address] NELLY GARDINER Next Of Kin [address] [facility] [place] [address] UE Next Of Kin Unknown Unavailable HERMES WAGONER Next Of Kin [address] [facility] [address] [place] [address] ST Next Of Kin Unknown Unavailable SHIKHA FRANCISCO Next Of Kin [address] [place] [address] Care Team Providers Care Local Telephone Operator Name Role Phone LETTIERE, A REJI PA [...] A REJI PA Unavailable Unavailable LETTIERE, A RJEI PA Unavailable Unavailable LETTIERE, A REJI PA [...] is protected by Article 27-F of the [place] State Public Health law. If you continue you may have access to information: Regarding HIV / AIDS; Provided by facilities licensed or operated by the [facility] Office of Mental Health; or Provided by the [facility] Office for People With Developmental Disabilities. If such information is present, then the following [facility] mandated warning applies: This information has been [...] law may result in a fine or nursing home sentence or both. A general authorization for [...] Prim wendy 08/17/2021 10:35:00 AM EDT MEDENT ([facility]) ( ESTOB) [facility] OB [address] [place] [address] 08/12/2021 12:00:00 AM EDT eCW1 ([facility]) Unknown [address] [facility] [address] 07/15/2021 12:00:00 AM EDT eCW1 ([facility]) ( NEW) [facility] OB Visit [address] [place] [address] 07/14/2021 12:00:00 AM EDT eCW1 ([facility]) Outpatient Attender: SOFIA Dominguez Primary 02/21/2021 01:00:00 PM EDT MEDENT ([facility]) Outpatient Attender: SOFIA Dominguez Primary 02/11/2021 11:15:00 AM EDT MEDENT ([facility]) Outpatient Attender: ASAEL BEJARANO MD 07/03/2020 02:24:01 P M EDT [facility] Immunizations Vaccine Date Status Description Data Source(s) COVID-19 VACCINE Moderna 04/13/2021 12:00:00 AM EDT completed [facility] Vaccine Series Complete: YESThis Data wa s Submitted to [facility]. COVID-19 VACCINE Moderna 03/16/2021 12:00:00 AM EDT completed [facility] Vaccine Series Complete: NOThis Data was Submitted to [facility]. Medications Medication Brand Name Start Date Product Form Dose Route Admi nistrative Instructions Pharmacy Instructions Status Indications Reaction Description Data Source(s) Amoxicillin 875 MG Oral Tablet Amoxicillin 08/17/2021 12:00:00 AM EDT active MEDENT ([facility], [facility]) 200 ACTUAT Albuterol 0.09 MG/ACTUAT Metered Dose Inhaler [Pr oAir] Proair HFA 08/17/2021 12:00:00 AM EDT RESPIRATORY active MEDENT ([facility]) Insurance Providers Payer name Policy type / Coverage type Policy ID Covered republican ID Covered republican's relationship to mcadams Policy Mcadams Plan Information [facility] PLAN [id number] SP [id number] [facility] Health Maintenance Organization ([facility]) [id number] Self [id number] Managed Care - Community Plan [facility] P [id number] S [id number] [facility] [id number] SP [id number] [facility] COMMUNITY PL[facility] [id number] SP [id number] Medicaid S [id number] S [id number] Managed Care - Community Plan [facility] P [id number] S [id number] UN COMMUNITY PLAN [facility] [id number] SP [id number] Medicaid S [id number] S [id number] Medicaid S [id number] S [id number] [facility] Health Maintenance Organization ([facility]) [id number] Self [id number] [facility] Health Maintenance Organization ([facility]) [id number] Self [id number] [facility] Health Maintenance Organization ([facility]) [id number] Self [id number] [facility] Health Maintenance Organization ([facility]) [id number] Self [id number] [facility] Health Maintenance Organization ([facility]) [id number] Self [id number] [facility] Health Maintenance [facility] ([facility]) [id number] Self [id number] [facility] Health Maintenance Organization ([facility]) [id number] Self [id number] [facility] P UNAVAILABLE S UNAVAILABLE D Managed Care [facility] P [id number] S [id number] Managed Care BCBS O [id number] S [id number] Medicaid Dental O [id number] S [id number] Medicaid O [id number] S [id number] BLUE CROSS OTHER 1 [id number] SP [id number] SELF PAY UNAVAILABLE SP UNAVAILA BLE EXCELLUS BCBS P [id number] S [id number] BLUE CROSS SYKES PLAN [id number] SP [id number] BCBS FRANCIA HMO [id number] SP [id number] BCBS FRANCIA O [id number] SP [id number] [facility] COMMUNITY PLAN MCDHMO [id number] SP [id number] Managed Care - [facility] Community Plan P [id number] S [id number] [facility](MCA[facility]) O [id number] S [id number] Self Pay P UNAVAILABLE S UNAVAILA BLE [facility] ([facility]) [id number] Self [id number] [facility] ([facility]) [id number] Self [id number] [facility] ([facility]) [id number] Self [id number] [facility] ([facility]) [id number] Self [id number] Problems, Conditions, and Diagnoses Code Display Name Description Problem Type Effective Dates Data Source(s) F19.11 [id number] History of substance abuse Problem 12:00:00 AM EDT eCW1 ([facility]) Z34.80 care Supervision of other normal P july 07/12/2021 12:00:00 AM EDT eCW1 ([facility]) Surgeries/Procedures Procedure Description Date Indications Data Source(s) OFFICE OUTPATIENT VISIT 15 MINUTES 08/17/2021 12:00:00 AM EDT MEDENT ([facility], [facility]) OFFICE OUTPATIENT VISIT 15 MINUTES 02/21/2021 12:00:00 AM EDT MEDENT ([facility], [facility]) Results ID Date Data Source [id number] 08/17/2021 12:00:00 AM EDT [facility] Name Value Range Interpretation Code Description Data Coco rce(s) Supporting Document(s) SARS-CoV2 Rapid Antigen Negative [facility] This lab was ordered by [facility] and reported by [facility]. ID Date Data Source [id number] 02/11/2021 12:00:00 AM EDT [facility] Name Value Range Interpretation Code Description Data Coco rce(s) Supporting Document(s) SARS-CoV2 Rapid Antigen Positive [facility] This lab was ordered by [facility] and reported by [facility]. ID Date Data Source [id number] 08/26/2020 01:00:00 PM EDT [facility] Name Value Range Interpretation Code Description Data Coco rce(s) Supporting Document(s) SARS coronavirus 2 RNA [facility] This lab was ordered by [facility] and reported by [facility]. Procedure Social History Code Duration Value Status Description Data Source(s ) Smoking 08/10/2021 12:00:00 AM EDT Current Smoker completed Curre nt Smoker eCW1 ([facility]) Smoking 07/14/2021 12:00:00 AM EDT Current Smoker completed Curre nt Smoker eCW1 ([facility]) Smoking 07/14/2021 12:00:00 AM EDT Current Smoker completed Curre nt Smoker eCW1 ([facility]) Vital Signs ID Date Data Source UNK Name Value Range Interpretation Code Description Data Source(s) Systolic blood pressure 109 mm[Hg] 109 mm[Hg] M EDENT ([facility], [facility]) Diastolic blood pressure 68 mm[Hg] 68 mm[Hg] MEDENT ([facility], [facility]) Heart rate 84 /min 84 /min [facility] Respiratory rate 16 /min 16 /min [facility] ( [facility]) Oxygen saturation in Arterial blood by Pulse oximetry 97 % 97 % [facility] ([facility]) Body temperature 98.3 [degF] 98.3 [degF] [facility] ([facility]) Body weight 130.00 [lb_av] 130.00 [lb_av] MEDEN T ([facility], [facility]) Body height 64 [in_i] 64 [in_i] [facility] ([facility]) 5'4" Body mass index (BMI) [Ratio] 22.3 kg/m2 22.3 k g/m2 [facility] ([facility]) Body weight 129.2 [lb_av] 129.2 [lb_av] eCW1 ([facility]) Body weight 58.6 kg 58.6 kg eCW1 ([facility]) Body height 64 [in_i] 64 [in_i] eCW1 ([facility]) Body mass index (BMI) [Ratio] 22.177 kg/m2 22.1 77 kg/m2 eCW1 ([facility]) Systolic blood pressure 106 mm[Hg] 106 mm[Hg] e CW1 ([facility]) Diastolic blood pressure 64 mm[Hg] 64 mm[Hg] eCW1 ([facility]) Body weight 124 [lb_av] 124 [lb_av] eCW1 ([facility]) Body height 64 [in_i] 64 [in_i] eCW1 ([facility]) Body mass index (BMI) [Ratio] 21.285 kg/m2 21.2 85 kg/m2 eCW1 ([facility]) Systolic blood pressure 92 mm[Hg] 92 mm[Hg] e CW1 ([facility]) Diastolic blood pressure 60 mm[Hg] 60 mm[Hg] eCW1 ([facility]) Oxygen saturation in Arterial blood by Pulse oximetry 98 % 98 % [facility] ([facility], [facility]) Body temperature 98.9 [degF] 98.9 [degF] [facility] ([facility], [facility]) Body weight 110.00 [lb_av] 110.00 [lb_av] MEDEN T ([facility], [facility]) Body height 66 [in_i] 66 [in_i] MEDENT ([facility], [facility]) 5'6" Body mass index (BMI) [Ratio] 17.8 kg/m2 17.8 k g/m2 [facility] ([facility], [facility]) Respiratory rate 16 /min 16 /min [facility] ( [facility], [facility]) Systolic blood pressure 104 mm[Hg] 104 mm[Hg] M EDENT ([facility], [facility]) Diastolic blood pressure 65 mm[Hg] 65 mm[Hg] MEDENT ([facility], [facility]) Heart rate 68 /min 68 /min MED[facility] ([facility], [facility]) Systolic blood pressure 107 mm[Hg] 107 mm[Hg] M EDENT ([facility], [facility]) Diastolic blood pressure 74 mm[Hg] 74 mm[Hg] [facility] ([facility], [facility]) Heart rate 85 /min 85 /min [facility] ([facility]) Respiratory rate 16 /min 16 /min [facility] ( [facility], [facility]) Oxygen saturation in Arterial blood by Pulse oximetry 95 % 95 % [facility] ([facility], [facility]) Body temperature 97.8 [degF] 97.8 [degF] [facility] ([facility], [facility]) Body weight 120.00 [lb_av] 120.00 [lb_av] [facility] Body height 64 [in_i] 64 [in_i] [facility] ([facility], [facility]) 5'4" Body mass index (BMI) [Ratio] 20.6 kg/m2 20.6 k g/m2 [facility] ([facility], [facility])
[2021-08-29 09:11] LABS: BASO # 0.1 10^3/uL (0.0-0.2); BASO % 0.5 % (0.0-1.0); EOS # 0.1 10^3/uL (0.0-0.5); EOS % 0.9 % (0.0-3.0); HEMATOCRIT 40.7 % (36.0-47.0); HEMOGLOBIN 13.7 g/dl (12.0-15.5); LYMPH # 3.1 10^3/uL (1.5-5.0); LYMPH % 25.3 % (24.0-44.0); MEAN CORPUSCULAR HEMOGLOBIN 30.4 pg (27.0-33.0); MEAN CORPUSCULAR HGB CONC 33.7 g/dl (32.0-36.5); MEAN CORPUSCULAR VOLUME 90.4 fl (80.0-96.0); MONO # 0.6 10^3/uL (0.0-0.8); MONO % 4.8 % (2.0-8.0); NEUTROPHILS # 8.5 10^3/uL (1.5-8.5); NEUTROPHILS % 68.2 % (36.0-66.0); PLATELET COUNT, AUTOMATED 307 10^3/uL (150-450); WHITE BLOOD COUNT 12.4 10^3/uL (4.0-10.0)
--- NOTE | 2021-08-29 09:39 | REP ---
INDICATION: cramping COMPARISON: None. TECHNIQUE: Limited transabdominal obstetrical ultrasound with color Doppler evaluation. FINDINGS: Examination demonstrates a single live intrauterine in transverse presentation. motion is identified by technologist. Placenta is noted right lateral and grade 0 without evidence for placenta previa or abruption. Amniotic fluid volume is normal. Cervix measures 3.0 in length and appears closed. No obvious abnormalities are identified.. Selected gestational age: 15 weeks 2 days with LATONYA 02/18/2022. FHR equals 155 beats per minute. IMPRESSION: Single live intrauterine in transverse lie. No obvious abnormalities are appreciated. <Electronically signed by Mike Morales > 08/29/21 [id number]
[2021-08-29 10:06] LABS: BLOOD UREA NITROGEN 5 MG/DL (7-18); CALCIUM LEVEL 8.8 MG/DL (8.5-10.1); CARBON DIOXIDE LEVEL 25 MEQ/L (21-32); CHLORIDE LEVEL 110 MEQ/L (98-107); CREATININE FOR GFR 0.37 MG/DL (0.55-1.30); GLOMERULAR FILTRATION RATE > 60.0 (>60); GLUCOSE, FASTING 69 MG/DL (70-100); HCG, SERUM QUANTITATIVE 7811 MIU/ML; SODIUM LEVEL 140 MEQ/L (136-145)
[2021-08-29 10:30] LABS: GC DNA AMPLIFICATION NEGATIVE (NEGATIVE)
== END 2021-08-29 11:20 | disposition home or self-care (01) ==
LOC: M ED 07:55
DX: O26.892 Other specified pregnancy related conditions, second trimester (principal); R10.9 Unspecified abdominal pain; O99.342 Other mental disorders complicating pregnancy, second trimester; F31.9 Bipolar disorder, unspecified; F41.9 Anxiety disorder, unspecified; F43.10 Post-traumatic stress disorder, unspecified; Z3A.15 15 weeks gestation of pregnancy

== ENCOUNTER → 2021-09-17 | Outpatient (CLI) | payer BC ==
[~2021-09-17] MED LIST changes: +MULTTAB20 PO
--- NOTE | 2021-09-17 14:09 | REP ---
INDICATION: PREG, ANATOMY. COMPARISON: None. TECHNIQUE: Transabdominal scanning FINDINGS: Multiple ultrasonographic images of the gravid uterus shows a single living intrauterine gestation in the breech presentation. Doppler interrogation of the heart shows a heart rate of 140 beats per minute. The placenta is right lateral and not low-lying. The cervix measures 3 cm in length and is closed. The subjective amniotic fluid volume is within normal limits. BPD: 4.4 cm 19 weeks 2 days HC: 15.8 cm 18 weeks 5 days AC: 12.8 cm 18 weeks 3 days FL: 2.7 cm 18 weeks 1 day The estimated weight is 234 g. This is at the 66th percentile. The anatomical structures seen to be unremarkable are as follows: Thalami, cavum septum pellucidum, cerebellum, cisterna magna, cerebral ventricles, cord insertion, three-vessel umbilical cord, urinary bladder, stomach, upper lip, four-chamber heart, right ventricular outflow tract, and extremities. Structures seen suboptimally are as follows: Spine, kidneys, and left ventricular outflow tract. An echogenic focus was seen in the region of the left ventricular outflow tract. IMPRESSION: Single living intrauterine gestation as described above with an estimated gestational age of 18 weeks 4 days via composite criteria and an estimated date of delivery of 02/14/2022 by today's exam. No anomalies were detected, however, recommend a follow-up examination to re-evaluate those structures suboptimally seen today as described above. <Electronically signed by Bakari Dudley > 09/17/21 [id number]
== END ==
LOC: M RAD 10:42
PROVIDERS: ATTEND Advanced Practice Midwife
DX: O34.211 Maternal care for low transverse scar from previous cesarean delivery (principal)

== ENCOUNTER → 2021-10-26 | Outpatient (CLI) | payer BC | LOC: M WHC 09:47 | PROVIDERS: ATTEND Specialist | DX: Z34.82 Encounter for supervision of other normal pregnancy, second trimester (principal); Z3A.00 Weeks of gestation of pregnancy not specified ==

== ENCOUNTER → 2021-11-25 | Outpatient (CLI) | payer BC | LOC: M WHC 14:32 | PROVIDERS: ATTEND Obstetrics & Gynecology | DX: O34.211 Maternal care for low transverse scar from previous cesarean delivery (principal) ==

== ENCOUNTER 2021-12-21 08:34 | Emergency (ER) | payer BC ==
[~2021-12-21] VITALS: Ht 165.1 cm; Wt 65.0 kg
[2021-12-21 10:12] VITALS: BP 106/57
== END 2021-12-21 10:17 | disposition home or self-care (01) ==
LOC: M ED 08:34
DX: O9A.219 Injury, poisoning and certain other consequences of external causes complicating pregnancy, unspecified trimester (principal); M65.4 Radial styloid tenosynovitis [de Quervain]; W00.9XXA Unspecified fall due to ice and snow, initial encounter; Y92.9 Unspecified place or not applicable; Y93.9 Activity, unspecified; Y99.9 Unspecified external cause status; Z3A.31 31 weeks gestation of pregnancy

== ENCOUNTER 2021-12-25 15:25 | Outpatient (CLI) | payer BC ==
[~2021-12-25] VITALS: Ht 134.6 cm; Wt 64.7 kg
[2021-12-25 15:39] VITALS: BP 104/61
[2021-12-25] MEDS ORDERED: HOME MED LIST COMPLETE! XX SCH (15:50)
[2021-12-25 16:51] LABS: APPEARANCE, URINE CLEAR (CLEAR); BACTERIA, URINE AUTO NEGATIVE (NEGATIVE); BILIRUBIN, URINE AUTO NEGATIVE (NEGATIVE); BLOOD, URINE BLOOD NEGATIVE (NEGATIVE); COLOR, URINE YELLOW (YELLOW); GLUCOSE, URINE (UA) AUTO NEGATIVE (NEGATIVE); KETONE, URINE AUTO TRACE mg/dL (NEGATIVE); LEUKOCYTE ESTERASE, URINE AUTO NEGATIVE (NEGATIVE); MUCUS, URINE SMALL (NEGATIVE); NITRITE, URINE AUTO NEGATIVE (NEGATIVE); PROTEIN, URINE AUTO NEGATIVE (NEGATIVE); RBC, URINE AUTO 0 /HPF (0-3); SPECIFIC GRAVITY URINE AUTO 1.018 (1.002-1.035); SQUAMOUS EPITHELIAL CELL UR AU 2 /HPF (0-6); WBC, URINE AUTO 1 /HPF (0-3)
== END 2021-12-25 17:30 | disposition home or self-care (01) ==
LOC: M LDO 15:25
PROVIDERS: ATTEND Specialist
DX: O36.8130 Decreased fetal movements, third trimester, not applicable or unspecified (principal); Z3A.32 32 weeks gestation of pregnancy

== ENCOUNTER → 2022-01-25 | Outpatient (REF) | payer MEDICAID, SELFPAY ==
[~2022-01-25] MED LIST changes: +MULTTAB12 PO
== END ==
LOC: M SFHCWAGY 13:01
PROVIDERS: ATTEND Advanced Practice Midwife
DX: Z36.85 Encounter for antenatal screening for Streptococcus B (principal)

== ENCOUNTER → 2022-02-09 | Outpatient (CLI) | payer BC | LOC: M LABSMTC 09:14 | PROVIDERS: ATTEND Anesthesiology | DX: Z11.52 Encounter for screening for COVID-19 (principal); Z20.822 Contact with and (suspected) exposure to COVID-19 ==

== ENCOUNTER → 2022-12-31 | Outpatient (REF) | payer OTHER ==
[~2022-12-31] MED LIST changes: +DOCU-153 PO
[2022-12-31 21:10] LABS: GC DNA AMPLIFICATION NEGATIVE (NEGATIVE)
== END ==
LOC: M LAB REF 18:41
PROVIDERS: ATTEND Physician Assistant
DX: R30.0 Dysuria (principal)

== ENCOUNTER 2023-03-05 08:59 | Emergency (ER) | payer OTHER ==
[~2023-03-05] VITALS: Ht 162.6 cm; Wt 49.9 kg
[2023-03-05 10:43] VITALS: BP 112/62
== END 2023-03-05 11:08 | disposition home or self-care (01) ==
LOC: M ED 08:59
DX: J06.9 Acute upper respiratory infection, unspecified (principal); F41.9 Anxiety disorder, unspecified

== ENCOUNTER → 2023-03-07 | Outpatient (CLI) | payer OTHER ==
[2023-03-07 16:31] LABS: BASO # 0.1 10^3/uL (0.0-0.2); BASO % 0.8 % (0.0-1.0); EOS % 0.4 % (0.0-3.0); HEMOGLOBIN 13.8 g/dl (12.0-15.5); LYMPH # 1.8 10^3/uL (1.5-5.0); LYMPH % 18.9 % (24.0-44.0); MEAN CORPUSCULAR HEMOGLOBIN 29.2 pg (27.0-33.0); MEAN CORPUSCULAR HGB CONC 32.1 g/dl (32.0-36.5); MEAN CORPUSCULAR VOLUME 91.1 fl (80.0-96.0); MONO # 0.3 10^3/uL (0.0-0.8); MONO % 3.5 % (2.0-8.0); NEUTROPHILS % 76.2 % (36.0-66.0); PLATELET COUNT, AUTOMATED 327 10^3/uL (150-450); RED BLOOD COUNT 4.72 10^6/uL (4.00-5.40); WHITE BLOOD COUNT 9.2 10^3/uL (4.0-10.0)
[2023-03-07 16:52] LABS: LIPASE 23 U/L (12-53)
[2023-03-07 16:53] LABS: AMYLASE 42 U/L (30-118)
[2023-03-07 16:54] LABS: BLOOD UREA NITROGEN 10 MG/DL (9-23); CALCIUM LEVEL 9.6 MG/DL (8.5-10.1); CARBON DIOXIDE LEVEL 28 MMOL/L (20-31); CHLORIDE LEVEL 104 MMOL/L (98-107); GLOMERULAR FILTRATION RATE > 60.0 (>60); GLUCOSE, FASTING 87 MG/DL (60-100); POTASSIUM SERUM 3.9 MMOL/L (3.5-5.1); SODIUM LEVEL 141 MMOL/L (136-145)
[2023-03-07 17:10] LABS: MONO SCRN NEGATIVE (NEGATIVE)
[2023-03-07 17:26] LABS: HIV 1&2 SCREEN CENTAUR NEGATIVE (NEGATIVE)
== END ==
LOC: M WUC 10:59
PROVIDERS: ATTEND Nurse Practitioner Family
DX: R05.9 Cough, unspecified (principal); J01.90 Acute sinusitis, unspecified; R11.2 Nausea with vomiting, unspecified; G93.31 Postviral fatigue syndrome

== ENCOUNTER → 2023-03-17 | Outpatient (REF) | payer OTHER | LOC: M LAB REF 16:14 | PROVIDERS: ATTEND Nurse Practitioner Family | DX: R30.0 Dysuria (principal) ==

== ENCOUNTER 2023-04-25 09:40 | Emergency (ER) | payer OTHER ==
[~2023-04-25] VITALS: Ht 162.6 cm; Wt 49.4 kg
[2023-04-25 13:18] LABS: BASO # 0.1 10^3/uL (0.0-0.2); BASO % 0.6 % (0.0-1.0); EOS # 0.1 10^3/uL (0.0-0.5); EOS % 0.9 % (0.0-3.0); HEMOGLOBIN 11.7 g/dl (12.0-15.5); LYMPH # 2.8 10^3/uL (1.5-5.0); LYMPH % 35.4 % (24.0-44.0); MEAN CORPUSCULAR HEMOGLOBIN 30.1 pg (27.0-33.0); MEAN CORPUSCULAR HGB CONC 33.4 g/dl (32.0-36.5); MONO # 0.3 10^3/uL (0.0-0.8); MONO % 3.5 % (2.0-8.0); NEUTROPHILS # 4.6 10^3/uL (1.5-8.5); NEUTROPHILS % 59.2 % (36.0-66.0); PLATELET COUNT, AUTOMATED 221 10^3/uL (150-450); RED BLOOD COUNT 3.89 10^6/uL (4.00-5.40); WHITE BLOOD COUNT 7.8 10^3/uL (4.0-10.0)
[2023-04-25] MEDS ORDERED: KETOROLAC 30 MG/ML 1ML VIAL IV ONE (13:50)
[2023-04-25] MEDS ORDERED: NS 1,000 ML IV ONE (13:50)
[2023-04-25] MEDS ORDERED: ISOVUE-370 76% 100ML VIAL As Ordered ONE (14:02)
[2023-04-25] MEDS ORDERED: METH-1164 PO (16:02)
[2023-04-25] MEDS ORDERED: MEDR4PAK PO (16:02)
[2023-04-25 16:13] VITALS: BP 137/78; TEMP 98.2; O2SAT 100
== END 2023-04-25 16:18 | disposition home or self-care (01) ==
LOC: M ED 09:40
DX: M62.830 Muscle spasm of back (principal); F19.10 Other psychoactive substance abuse, uncomplicated; F17.200 Nicotine dependence, unspecified, uncomplicated; Z79.899 Other long term (current) drug therapy
CPT/HCPCS: 70491; 80047; 84702; 85025; 96374; 99284; J1885; Q9967

== ENCOUNTER → 2023-08-21 | Outpatient (REF) | payer OTHER ==
[~2023-08-21] MED LIST changes: +MEDR4PAK PO; +METH-1164 PO
[2023-08-21 18:10] LABS: BASO # 0.1 10^3/uL (0.0-0.2); BASO % 0.6 % (0.0-1.0); EOS # 0.1 10^3/uL (0.0-0.5); EOS % 0.6 % (0.0-3.0); HEMATOCRIT 40.1 % (36.0-47.0); HEMOGLOBIN 13.2 g/dl (12.0-15.5); LYMPH # 1.5 10^3/uL (1.5-5.0); LYMPH % 16.4 % (24.0-44.0); MEAN CORPUSCULAR HEMOGLOBIN 30.5 pg (27.0-33.0); MEAN CORPUSCULAR HGB CONC 32.9 g/dl (32.0-36.5); MEAN CORPUSCULAR VOLUME 92.6 fl (80.0-96.0); MONO # 0.4 10^3/uL (0.0-0.8); MONO % 4.4 % (2.0-8.0); NEUTROPHILS # 7.3 10^3/uL (1.5-8.5); NEUTROPHILS % 77.7 % (36.0-66.0); PLATELET COUNT, AUTOMATED 288 10^3/uL (150-450); RED BLOOD COUNT 4.33 10^6/uL (4.00-5.40); WHITE BLOOD COUNT 9.4 10^3/uL (4.0-10.0)
[2023-08-21 18:26] LABS: HEMOGLOBIN A1c 4.3 % (4.0-6.0)
[2023-08-21 19:50] LABS: ALBUMIN 4.7 G/DL (3.2-5.2); ALKALINE PHOSPHATASE 62 U/L (46-116); ALT/SGPT 15 U/L (7.0-40); AST/SGOT 9 U/L (<34); BILIRUBIN,TOTAL 0.6 MG/DL (0.3-1.2); BLOOD UREA NITROGEN 15 MG/DL (9-23); CALCIUM LEVEL 9.8 MG/DL (8.5-10.1); CARBON DIOXIDE LEVEL 24 MMOL/L (20-31); CHLORIDE LEVEL 108 MMOL/L (98-107); CHOLESTEROL LEVEL 167 MG/DL (<200); CHOLESTEROL RISK RATIO 3.28 (<5); CREATININE FOR GFR 0.67 MG/DL (0.55-1.30); GLOMERULAR FILTRATION RATE > 60.0 (>60); GLUCOSE, FASTING 94 MG/DL (60-100); HDL CHOLESTEROL 50.8 MG/DL (>40); LDL CHOLESTEROL 102.4 MG/DL (<100); NON-HDL-C 116.2 MG/DL; POTASSIUM SERUM 4.1 MMOL/L (3.5-5.1); SODIUM LEVEL 141 MMOL/L (136-145); THYROID STIMULATING HORMONE 0.583 uIU/ML (0.55-4.78); TOTAL 25(OH) VITAMIN D 24.3 NG/ML (20.0-100.0); TOTAL PROTEIN 7.5 G/DL (5.7-8.2); TRIGLYCERIDES LEVEL 69 MG/DL (<150)
== END ==
LOC: M LAB REF 16:49
PROVIDERS: ATTEND Nurse Practitioner Family
DX: E55.9 Vitamin D deficiency, unspecified (principal); R53.83 Other fatigue; Z11.9 Encounter for screening for infectious and parasitic diseases, unspecified; Z68.1 Body mass index [BMI] 19.9 or less, adult; R63.4 Abnormal weight loss